=== PATIENT | male | born 1985 | race Caucasian/White ===

== ENCOUNTER 2021-05-17 16:11 | Inpatient (IN) ==
[2021-05-17] MEDS ORDERED: SODIUM CHLORIDE 0.9% 1000ML 1,000 ML IV ONE ×2 (16:40→21:00)
[2021-05-17] MEDS ORDERED: METOCLOPRAMIDE HCL INJ 5 MG/ML 2 ML VIAL IV STA (16:41)
[2021-05-17] MEDS ORDERED: diphenhydrAMINE 50 MG/ML VIAL IV STA (16:41)
--- NOTE | 2021-05-17 16:43 | Emergency Department Note ---
Impression & Plan Hyperbilirubinemia Admission ED Provider Note HPI: The patient is a 36-year-old male who presents the emergency department today with multiple issues. Patient states he was seen here in the emergency department on May 11 for headache, body aches, fever, he was diagnosed with COVID-19 at that time. He states that he was subsequently seen in the emergency department a second time on May 13 for some swelling on the left side of his neck that developed in the interim, CT imaging of the neck revealed a nonspecific inflammation thought to be consistent with myositis, possibly infectious, unclear if this was related to COVID-19 therefore patient was placed on Augmentin and discharged. He states that his symptoms had been improving in regards to the left-sided sternocleidomastoid myositis, states that last evening he developed a posterior type headache that radiated from the suboccipital muscle area anteriorly. He also has had myalgias. He tells me it is somewhat superficial in nature and feels almost as if it is in his scalp. He ststes it was similar in nature to his previous headaches. Patient states that in addition he had some outpatient lab work done on Tuesday that was concerning and his PCP recommended he come into the emergency department for further evaluation. His significant other at the bedside tells me that his white blood cell count was elevated and also his inflammatory markers including an ESR and CRP. On arrival here to the ED the patient is afebrile, he is slightly tachycardic, he is otherwise saturating well on room air and is in no acute distress. He is noted to have some scleral icterus, his tells me that she noticed this as well earlier today. He denies any abdominal pain, denies any nausea or vomiting recently. He is alert and oriented x3 and generally nontoxic-appearing on my initial assessment. ROS: -General: Fever in the setting of recent COVID-19 infection -Neuro: Headache -MSK: Myalgias/chills *10 point review systems was conducted and is otherwise negative unless stated above *Outpatient medications and allergy history reviewed PE: General: Alert, NAD HEENT: Normocephalic, atraumatic, trachea midline, full range of motion of the cervical spine is appreciated without pain, TMs clear bilaterally Eyes: Extraocular eye movement is intact, no scleral erythema, scleral icterus is noted Pulmonary: Clear to auscultation bilaterally, no wheezing Cardio: Tachycardic rate with regular rhythm GI: Abdomen is soft, nontender : No suprapubic tenderness MSK: No evidence of trauma or malformation of the extremities, no edema Skin: No evidence of rash Neuro: Alert, no focal deficits Psychiatric: Cooperative panel monitor: - An order was placed for continuous cardiac monitoring - Patient was noted to be in sinus rhythm with rate of 102 EKG: Rate: 105 Rhythm: Sinus tachycardia Intervals: Within normal limits ST changes: No ST elevation Time: 1656 Medical Decision Making: Patient presented to the emergency department with chief complaint of some myalgias, stated he also had a headache that radiated somewhat from the suboccipital area. He was recently diagnosed with COVID-19, he had similar symptoms earlier in the week that resolved and then returned. He is noted to have some scleral icterus on arrival, he is otherwise alert, he is hemodynamically stable despite some mild tachycardia, he is afebrile on presentation. Lab work was initiated including CBC, CMP, blood cultures x2, lactic acid, CPK levels, imaging was also ordered including CT imaging of the abdomen pelvis, chest x-ray, CT imaging of the head as well as CT imaging of the soft tissue of the neck. Lab work shows evidence of a leukocytosis greater than 18,000, procalcitonin is elevated 3.7, lactic acid is within normal limits, patient has a transaminitis and elevated alk phos, patient is also noted to have hyperbilirubinemia with a total bilirubin of 4.9. Urinalysis does not show evidence of infection, does show positive for urobilinogen and bilirubin. Patient was given 2 L of IV normal saline, he was given morphine for pain, he was also given Reglan and Benadryl. On my reassessment he states he feels improved. CT imaging of the head does not show any acute abnormality, CT imaging of the neck shows resolution of previous inflammation, CT imaging of the abdomen and pelvis does not show any evidence of an acute surgical abnormality. Ultrasound imaging of the right upper quadrant shows evidence of a thickened gallbladder wall with negative Gutierrez sign noted, patient is also noted to have hepatomegaly. On reassessment the patient is nontoxic-appearing, did discuss possible LP, at this time he does not have any meningeal signs on my exam, he has full range of motion of his neck without issue, he was recently diagnosed with COVID-19 and myositis of the neck, I believe this is likely why he has headache and neck pain as he had previously in the week, will defer LP at this time which the patient states he prefers. Of note, the patient is an avid travis, he was tested for Lyme disease earlier in the week and this was negative. Influenza testing was also obtained today and this is negative. I do have concern for hepatitis as a source of the patient's scleral icterus, transaminitis, elevated bilirubin, and transient fevers. We will send for acute hepatitis panel. In addition patient's COVID-19 testing was surprisingly negative, suspect this might be a false negative therefore we will repeat testing given that the patient just recently tested +6 days ago. Chest x-ray does not show any evidence of any obvious pneumonia. Urinalysis does show bilirubin but no evidence of infection. Given the patient's high procalcitonin level he was treated with broad-spectrum IV antibiotics vancomycin and cefepime, I discussed all the above findings with the on-call hospitalist, Dr. Garcia, who accepted the patient to an inpatient bed for further management and further work-up of transaminitis, fever, and hyperbilirubinemia in the setting of recent COVID-19 infection. * Diagnosis: Fever, hyperbilirubinemia, transaminitis , recent COVID-19 infection, myalgias, headache * Disposition: Admission Kevin Alexis DO Emergency Medicine Past Med/Surg History Medical History No significant past medical history Surgical History No significant past surgical history Social History Smoking Status: Never smoker Preferred Language: [place] marital status: Current Living Situation: Spouse and Family Feels Safe at Home: Yes Allergies Allergies Allergy/AdvReac Type Severity Reaction Status Date / Time No Known Allergies Allergy Verified 05/17/21 17:29 Home Meds Home Medications Medication Instructions Recorded Confirmed acetaminophen 500 mg tablet 1,000 mg PO Q6H PRN 05/11/21 05/17/21 (Tylenol Extra Strength) ibuprofen 200 mg tablet 400 - 600 mg PO DIRECTED PRN 05/17/21 05/17/21 Previous Rx's Medication Instructions Recorded amoxicillin 875 mg-potassium 1 tab PO BID 10 Days #20 tab 05/14/21 clavulanate 125 mg tablet (Augmentin) hydrocodone 5 mg-acetaminophen 325 1 tab PO Q6H PRN #10 tab 05/14/21 mg tablet Results & Data (ED) Vital Signs Vital Signs - 24 hr 05/17/21 16:18 05/17/21 17:36 05/17/21 17:38 Temperature 36.7 C Temperature Source Temporal Artery Scan Pulse Rate 104 H 97 H Pulse Rate [Finger] 96 H Pulse Rhythm Regular Respiratory Rate 18 30 H 30 H Respiratory Effort / Characteristics Respiratory Depth Blood Pressure 99/59 L Blood Pressure [Right Arm] 110/76 Blood Pressure Mean 72 Blood Pressure Mean [Right Arm] 87 Pulse Oximetry 98 97 96 Oxygen Delivery Method Sepsis Recent Fever Within 48 Hours No Sepsis New/Unexplained Change in Mental Status No Sepsis Action Taken by Nursing No Action Required 05/17/21 18:51 05/17/21 19:00 05/17/21 20:47 Temperature 38.6 C H Temperature Source Oral Pulse Rate Pulse Rate [Finger] 104 H 102 H Pulse Rhythm Respiratory Rate 18 24 Respiratory Effort / Characteristics Respiratory Depth Blood Pressure Blood Pressure [Right Arm] 132/72 137/70 Blood Pressure Mean Blood Pressure Mean [Right Arm] 92 92 Pulse Oximetry 97 96 Oxygen Delivery Method Sepsis Recent Fever Within 48 Hours Sepsis New/Unexplained Change in Mental Status Sepsis Action Taken by Nursing 05/17/21 22:30 05/17/21 23:14 05/17/21 23:20 Temperature Temperature Source Pulse Rate 105 H 105 H Pulse Rate [Finger] 106 H Pulse Rhythm Respiratory Rate 24 17 26 H Respiratory Effort / Characteristics Non-Labored Respiratory Depth Normal Blood Pressure Blood Pressure [Right Arm] 138/68 Blood Pressure Mean Blood Pressure Mean [Right Arm] 91 Pulse Oximetry 96 96 94 Oxygen Delivery Method Room Air Sepsis Recent Fever Within 48 Hours Sepsis New/Unexplained Change in Mental Status Sepsis Action Taken by Nursing 05/17/21 23:30 05/17/21 23:40 05/17/21 23:50 Temperature Temperature Source Pulse Rate 104 H 104 H 108 H Pulse Rate [Finger] Pulse Rhythm Respiratory Rate 18 20 17 Respiratory Effort / Characteristics Respiratory Depth Blood Pressure Blood Pressure [Right Arm] Blood Pressure Mean Blood Pressure Mean [Right Arm] Pulse Oximetry 97 95 97 Oxygen Delivery Method Sepsis Recent Fever Within 48 Hours Sepsis New/Unexplained Change in Mental Status Sepsis Action Taken by Nursing 05/17/21 23:59 05/18/21 00:00 Temperature Temperature Source Pulse Rate 108 H Pulse Rate [Finger] 108 H Pulse Rhythm Respiratory Rate 20 22 Respiratory Effort / Characteristics Respiratory Depth Blood Pressure 104/56 L Blood Pressure [Right Arm] 122/63 Blood Pressure Mean 72 Blood Pressure Mean [Right Arm] 82 Pulse Oximetry 96 95 Oxygen Delivery Method Room Air Sepsis Recent Fever Within 48 Hours Sepsis New/Unexplained Change in Mental Status Sepsis Action Taken by Nursing Laboratory Data Result diagrams: 05/17/21 17:17 05/17/21 17:17 Lab Results 05/17/21 05/17/21 05/17/21 Range/Units 17:17 17:17 17:17 WBC 18.77 H (4.8-10.8) K/uL RBC 4.77 (4.7-6.1) M/uL Hgb 14.6 (14.0-18.0) g/dL Hct 43.2 (42-52) % MCV 90.6 (80-100) fL MCH 30.6 (25-34) pg MCHC 33.8 (32-36) g/dL RDW Std Deviation 45.7 (36.4-46.3) fL RDW Coeff of Aida 13.8 (11.5-14.5) % Plt Count 279 (130-400) K/uL MPV 10.2 (7.4-10.4) fL Immature Gran % (Auto) 0.7 % Neut % (Auto) 91.0 % Lymph % (Auto) 3.2 % [place] % (Auto) 4.0 % Eos % (Auto) 0.9 % Baso % (Auto) 0.2 % Neut # (Auto) 17.08 H (1.4-6.5) K/uL Lymph # (Auto) 0.61 L (1.2-3.4) K/uL [place] # (Auto) 0.76 H (0.11-0.59) K/uL Eos # (Auto) 0.16 (0-0.5) K/uL Baso # (Auto) 0.03 (0-0.2) K/uL Immature Gran # (Auto) 0.13 H (0.00-0.02) K/uL PT (9.0-12.0) Seconds INR (0.9-1.1) APTT (21.0-31.0) Seconds PTT Ratio Sodium 134 L (136-145) mmol/L Potassium 3.7 (3.5-5.1) mmol/L Chloride 97 L (98-107) mmol/L Carbon Dioxide 27 (21-32) mmol/L Anion Gap 10.0 (3-11) BUN 27 H (7-18) mg/dl Creatinine 1.45 H (0.6-1.4) mg/dl Est Cr Clr Drug Dosing 90.8 ml/min Est GFR ( Amer) 70.8 ml/min Est GFR (Non-Af Amer) 61.1 ml/min BUN/Creatinine Ratio 18.4 (10-20) Glucose 151 H (70-99) mg/dl Lactate (0.4-2.0) mmol/L Calcium 9.1 (8.5-10.1) mg/dl Magnesium 2.4 (1.8-2.4) mg/dl Total Bilirubin 4.9 H (0.2-1) mg/dl Direct Bilirubin 3.7 H (0-0.2) mg/dl AST 45 H (15-37) U/L ALT 109 H (12-78) U/L Alkaline Phosphatase 358 H (45-117) U/L Total Creatine Kinase 16 L (39-308) U/L Troponin I 0.039 (0-0.045) ng/ml Total Protein 7.7 (6.4-8.2) gm/dl Albumin 2.4 L (3.4-5.0) gm/dl Globulin 5.3 H (2.5-4.0) gm/dl Albumin/Globulin Ratio 0.5 L (0.9-2) Procalcitonin 3.70 H (0-0.5) ng/ml Urine Color Urine Appearance (Clear) Urine pH (4.5-7.5) Ur Specific [place] (1.000-1.030) Urine Protein (Negative) Urine Glucose (UA) (Negative) Urine Ketones (Negative) Urine Blood (Negative) Urine Nitrite (Negative) Urine Bilirubin (Negative) Urine Urobilinogen (Negative) Ur Leukocyte Esterase (Negative) Urine WBC (Auto) (0-5) /hpf Urine RBC (Auto) (0-4) /hpf U Hyaline Cast (Auto) (0-5) /lpf U Epithel Cells (Auto) (0-5) /lpf Urine Bacteria (Auto) (Negative) COVID-19 Eval Order SARS-CoV-2 (PCR) (Negative) Influenza Type A Ag (Neg) Influ A Molecular Assay Influenza Type B Ag (Neg) Influ B Molecular Assay 05/17/21 05/17/21 05/17/21 Range/Units 17:17 17:17 18:38 WBC (4.8-10.8) K/uL RBC (4.7-6.1) M/uL Hgb (14.0-18.0) g/dL Hct (42-52) % MCV (80-100) fL MCH (25-34) pg MCHC (32-36) g/dL RDW Std Deviation (36.4-46.3) fL RDW Coeff of Aida (11.5-14.5) % Plt Count (130-400) K/uL MPV (7.4-10.4) fL Immature Gran % (Auto) % Neut % (Auto) % Lymph % (Auto) % [place] % (Auto) % Eos % (Auto) % Baso % (Auto) % Neut # (Auto) (1.4-6.5) K/uL Lymph # (Auto) (1.2-3.4) K/uL [place] # (Auto) (0.11-0.59) K/uL Eos # (Auto) (0-0.5) K/uL Baso # (Auto) (0-0.2) K/uL Immature Gran # (Auto) (0.00-0.02) K/uL PT 10.6 (9.0-12.0) Seconds INR 1.0 (0.9-1.1) APTT 23.1 (21.0-31.0) Seconds PTT Ratio 0.9 Sodium (136-145) mmol/L Potassium (3.5-5.1) mmol/L Chloride (98-107) mmol/L Carbon Dioxide (21-32) mmol/L Anion Gap (3-11) BUN (7-18) mg/dl Creatinine (0.6-1.4) mg/dl Est Cr Clr Drug Dosing ml/min Est GFR ( Amer) ml/min Est GFR (Non-Af Amer) ml/min BUN/Creatinine Ratio (10-20) Glucose (70-99) mg/dl Lactate 1.8 (0.4-2.0) mmol/L Calcium (8.5-10.1) mg/dl Magnesium (1.8-2.4) mg/dl Total Bilirubin (0.2-1) mg/dl Direct Bilirubin (0-0.2) mg/dl AST (15-37) U/L ALT (12-78) U/L Alkaline Phosphatase (45-117) U/L Total Creatine Kinase (39-308) U/L Troponin I (0-0.045) ng/ml Total Protein (6.4-8.2) gm/dl Albumin (3.4-5.0) gm/dl Globulin (2.5-4.0) gm/dl Albumin/Globulin Ratio (0.9-2) Procalcitonin (0-0.5) ng/ml Urine Color Urine Appearance (Clear) Urine pH (4.5-7.5) Ur Specific [place] (1.000-1.030) Urine Protein (Negative) Urine Glucose (UA) (Negative) Urine Ketones (Negative) Urine Blood (Negative) Urine Nitrite (Negative) Urine Bilirubin (Negative) Urine Urobilinogen (Negative) Ur Leukocyte Esterase (Negative) Urine WBC (Auto) (0-5) /hpf Urine RBC (Auto) (0-4) /hpf U Hyaline Cast (Auto) (0-5) /lpf U Epithel Cells (Auto) (0-5) /lpf Urine Bacteria (Auto) (Negative) COVID-19 Eval Order SARS-CoV-2 (PCR) (Negative) Influenza Type A Ag Neg for Influ A (Neg) Influ A Molecular Assay Influenza Type B Ag Neg for Influ B (Neg) Influ B Molecular Assay 05/17/21 05/17/21 05/17/21 Range/Units 18:39 19:46 21:12 WBC (4.8-10.8) K/uL RBC (4.7-6.1) M/uL Hgb (14.0-18.0) g/dL Hct (42-52) % MCV (80-100) fL MCH (25-34) pg MCHC (32-36) g/dL RDW Std Deviation (36.4-46.3) fL RDW Coeff of Aida (11.5-14.5) % Plt Count (130-400) K/uL MPV (7.4-10.4) fL Immature Gran % (Auto) % Neut % (Auto) % Lymph % (Auto) % [place] % (Auto) % Eos % (Auto) % Baso % (Auto) % Neut # (Auto) (1.4-6.5) K/uL Lymph # (Auto) (1.2-3.4) K/uL [place] # (Auto) (0.11-0.59) K/uL Eos # (Auto) (0-0.5) K/uL Baso # (Auto) (0-0.2) K/uL Immature Gran # (Auto) (0.00-0.02) K/uL PT (9.0-12.0) Seconds INR (0.9-1.1) APTT (21.0-31.0) Seconds PTT Ratio Sodium (136-145) mmol/L Potassium (3.5-5.1) mmol/L Chloride (98-107) mmol/L Carbon Dioxide (21-32) mmol/L Anion Gap (3-11) BUN (7-18) mg/dl Creatinine (0.6-1.4) mg/dl Est Cr Clr Drug Dosing ml/min Est GFR ( Amer) ml/min Est GFR (Non-Af Amer) ml/min BUN/Creatinine Ratio (10-20) Glucose (70-99) mg/dl Lactate (0.4-2.0) mmol/L Calcium (8.5-10.1) mg/dl Magnesium (1.8-2.4) mg/dl Total Bilirubin (0.2-1) mg/dl Direct Bilirubin (0-0.2) mg/dl AST (15-37) U/L ALT (12-78) U/L Alkaline Phosphatase (45-117) U/L Total Creatine Kinase (39-308) U/L Troponin I (0-0.045) ng/ml Total Protein (6.4-8.2) gm/dl Albumin (3.4-5.0) gm/dl Globulin (2.5-4.0) gm/dl Albumin/Globulin Ratio (0.9-2) Procalcitonin (0-0.5) ng/ml Urine Color Dark Yellow Urine Appearance Cloudy A (Clear) Urine pH 5.0 (4.5-7.5) Ur Specific [place] 1.019 (1.000-1.030) Urine Protein 1+ H (Negative) Urine Glucose (UA) Negative (Negative) Urine Ketones Negative (Negative) Urine Blood Negative (Negative) Urine Nitrite Negative (Negative) Urine Bilirubin 2+ H (Negative) Urine Urobilinogen Positive H (Negative) Ur Leukocyte Esterase Negative (Negative) Urine WBC (Auto) 1-5 (0-5) /hpf Urine RBC (Auto) 10-30 H (0-4) /hpf U Hyaline Cast (Auto) 1-5 (0-5) /lpf U Epithel Cells (Auto) 0-5 (0-5) /lpf Urine Bacteria (Auto) Negative (Negative) COVID-19 Eval Order Covid19 at [facility] SARS-CoV-2 (PCR) (Negative) Influenza Type A Ag (Neg) Influ A Molecular Assay Cancelled Influenza Type B Ag (Neg) Influ B Molecular Assay Cancelled 05/17/21 Range/Units 21:12 WBC (4.8-10.8) K/uL RBC (4.7-6.1) M/uL Hgb (14.0-18.0) g/dL Hct (42-52) % MCV (80-100) fL MCH (25-34) pg MCHC (32-36) g/dL RDW Std Deviation (36.4-46.3) fL RDW Coeff of Aida (11.5-14.5) % Plt Count (130-400) K/uL MPV (7.4-10.4) fL Immature Gran % (Auto) % Neut % (Auto) % Lymph % (Auto) % [place] % (Auto) % Eos % (Auto) % Baso % (Auto) % Neut # (Auto) (1.4-6.5) K/uL Lymph # (Auto) (1.2-3.4) K/uL [place] # (Auto) (0.11-0.59) K/uL Eos # (Auto) (0-0.5) K/uL Baso # (Auto) (0-0.2) K/uL Immature Gran # (Auto) (0.00-0.02) K/uL PT (9.0-12.0) Seconds INR (0.9-1.1) APTT (21.0-31.0) Seconds PTT Ratio Sodium (136-145) mmol/L Potassium (3.5-5.1) mmol/L Chloride (98-107) mmol/L Carbon Dioxide (21-32) mmol/L Anion Gap (3-11) BUN (7-18) mg/dl Creatinine (0.6-1.4) mg/dl Est Cr Clr Drug Dosing ml/min Est GFR ( Amer) ml/min Est GFR (Non-Af Amer) ml/min BUN/Creatinine Ratio (10-20) Glucose (70-99) mg/dl Lactate (0.4-2.0) mmol/L Calcium (8.5-10.1) mg/dl Magnesium (1.8-2.4) mg/dl Total Bilirubin (0.2-1) mg/dl Direct Bilirubin (0-0.2) mg/dl AST (15-37) U/L ALT (12-78) U/L Alkaline Phosphatase (45-117) U/L Total Creatine Kinase (39-308) U/L Troponin I (0-0.045) ng/ml Total Protein (6.4-8.2) gm/dl Albumin (3.4-5.0) gm/dl Globulin (2.5-4.0) gm/dl Albumin/Globulin Ratio (0.9-2) Procalcitonin (0-0.5) ng/ml Urine Color Urine Appearance (Clear) Urine pH (4.5-7.5) Ur Specific [place] (1.000-1.030) Urine Protein (Negative) Urine Glucose (UA) (Negative) Urine Ketones (Negative) Urine Blood (Negative) Urine Nitrite (Negative) Urine Bilirubin (Negative) Urine Urobilinogen (Negative) Ur Leukocyte Esterase (Negative) Urine WBC (Auto) (0-5) /hpf Urine RBC (Auto) (0-4) /hpf U Hyaline Cast (Auto) (0-5) /lpf U Epithel Cells (Auto) (0-5) /lpf Urine Bacteria (Auto) (Negative) COVID-19 Eval Order SARS-CoV-2 (PCR) NEGATIVE (Negative) Influenza Type A Ag (Neg) Influ A Molecular Assay Influenza Type B Ag (Neg) Influ B Molecular Assay Administered Medications Discontinued Medications Diphenhydramine HCl (Diphenhydramine 50 Mg/Ml Vial) 50 mg IV NOW STA Stop: 05/17/21 16:42 Last Admin: 05/17/21 17:30 Dose: 50 mg Documented by: [id number] Sodium Chloride (Nss 1000ml) 1,000 mls @ 999 mls/hr IV .Q1H1M ONE Stop: 05/17/21 17:40 Last Infusion: 05/17/21 18:30 Dose: 0 mls/hr Documented by: [id number] Admin: 05/17/21 17:30 Dose: 999 mls/hr Documented by: [id number] Sodium Chloride (Nss 1000ml) 1,000 mls @ 999 mls/hr IV .Q1H1M ONE Stop: 05/17/21 22:00 Last Infusion: 05/17/21 22:39 Dose: 0 mls/hr Documented by: [id number] Admin: 05/17/21 21:07 Dose: 999 mls/hr Documented by: [id number] Ioversol (Optiray 320 100ml) 95 ml IV ONCE ONE Stop: 05/17/21 19:30 Last Admin: 05/17/21 19:30 Dose: 95 ml Documented by: [id number] Metoclopramide HCl (Metoclopramide Hcl Inj 5 Mg/Ml 2 Ml Vial) 10 mg IV NOW STA Stop: 05/17/21 16:42 Last Admin: 05/17/21 17:30 Dose: 10 mg Documented by: [id number] Morphine Sulfate (Morphine Sulfate 4 Mg/Ml 1 Ml Carp\Vial) 4 mg IV NOW STA Stop: 05/17/21 21:01 Last Admin: 05/17/21 21:07 Dose: 4 mg Documented by: [id number] Imaging Data Radiologist's Impression: Chest X-Ray 05/17/21 16:39 XR chest 1V portable CLINICAL HISTORY: SEPSIS COMPARISON STUDY: Chest radiograph May 11, 2021. FINDINGS: Lung volumes are normal. There are mild bilateral lower lung opacities and interstitial thickening. Linear bibasilar opacities favor atelectasis. There is no pneumothorax or pleural effusion. Cardiac size is normal. Mediastinal c ontours are normal. There is no evidence for pulmonary edema. IMPRESSION: 1. Mild bilateral lower lung interstitial thickening. This could reflect an infectious process or atelectasis. 2. Linear bibasilar opacities suggestive of atelectasis. ACT 112: Negative or not required by law. Electronically signed by: Blair Wolf M.D. 05/17/2021 5:[address] 05/17/21 16:40 CT OF THE HEAD WITHOUT CONTRAST CLINICAL HISTORY: Headache. COMPARISON STUDY: No previous studies for comparison. TECHNIQUE: Helical axial images of the head were obtained without IV contrast. Automated exposure control was utilized for the study. A dose lowering technique was utilized adhering to the principles of ALARA. FINDINGS: No acute intracranial hemorrhage, midline shift or mass effect is present. The ventricular system is unremarkable. The basal cisterns are patent. No extra-axial collections are present. There are no findings to suggest acute dural sinus thrombosis or acute territorial infarct. No significant calvarial abnormalities are present. Visualized portions of the sinuses and mastoid air cells are clear. IMPRESSION: No acute intracranial findings. ACT 112: Negative or not required by law. Electronically signed by: Blair Wolf M.D. 05/17/2021 7:36 PM Soft Tissue Neck CT 05/17/21 16:40 CT OF THE NECK WITH IV CONTRAST CLINICAL HISTORY: Neck pain, recent myositis, evaluate for infection. COMPARISON STUDY: Neck CT May 14, 2021. TECHNIQUE: Following IV administration of 95 mL of Optiray, helical axial images of the neck were obtained. Sagittal and coronal reconstructions were viewed. Automated exposure control was utilized for the study. A dose lowering technique was utilized adhering to the principles of ALARA. CT DOSE: 3015.19 mGy.cm FINDINGS: Visualized portions of the intracranial contents are unremarkable. Mastoid air cells are clear. There is mild mucosal thickening of the sinuses. No fluid collection within the neck is noted. Major vasculature of the neck is patent. Epiglottis is normal. Parotid and submandibular glands are unremarkable. Is no soft tissue gas within the neck. Left neck inflammation shown on prior CT of May 14, 2021 has nearly completely resolved. Asymmetric enlargement of the left sternocleidomastoid muscle has resolved. Lymphadenopathy has improved. Lung apices are unremarkable. IMPRESSION: Near complete resolution of left neck inflammation shown on CT of May 14, 2021. ACT 112: Negative or not required by law. Electronically signed by: Blair Wolf M.D. 05/17/2021 7:42 PM Abdomen/Pelvis CT 05/17/21 19:17 CT OF THE ABDOMEN AND PELVIS WITH CONTRAST CLINICAL HISTORY: Transaminitis. COMPARISON STUDY: None. TECHNIQUE: Following IV administration of 95 mL of Optiray, axial images of the abdomen and pelvis were obtained from the lung bases to the proximal femurs. Images were reviewed in the axial, sagittal, and coronal planes. IV contrast was administered without complication. Automated exposure control was utilized for the study. A dose lowering technique was utilized adhering to the principles of ALARA. FINDINGS: Linear opacities within the lower lungs reflect atelectasis. There are mild groundglass opacities within the lower lungs. There are trace bilateral pleural effusions. No hepatic lesions are present. Liver morphology is normal. There is no biliary or pancreatic ductal dilatation. Mild gallbladder wall thickening is noted. The gallbladder is not distended. There is mild splenomegaly. The adrenal glands are unremarkable. Is no hydronephrosis. There is prominent enhancement of both ureters. Slight heterogeneity of the right kidney is likely within normal limits. There is no renal abscess. There is no evidence for a bowel obstruction. The appendix is normal. Caliber and wall thickness of small and large bowel are normal. There is trace fluid within the paracolic gutters. IMPRESSION: 1. No biliary ductal dilatation. Normal liver morphology. 2. Mild gallbladder wall thickening, a nonspecific finding. No gallbladder distention. The findings do not suggest acute cholecystitis. 3. Mild splenomegaly. 4. Apparent prominent enhancement of both ureters and slight heterogeneity of the right kidney, likely within normal limits. However, correlation with urinalysis is recommended. 5. Trace bilateral pleural effusions. 6. Normal appendix. No bowel obstruction. No bowel wall thickening. 7. Trace fluid within the bilateral paracolic gutters. ACT 112: Negative or not required by law. Electronically signed by: Blair Wolf M.D. 05/17/2021 7:54 PM Discharge Plan Visit Data Chief Complaint: Abnormal Labs/Diagnostic Testing Stated Complaint: CRITICAL LAB RESULTS - DR ROBBINS ED Provider: Kevin Alexis Discharge Problem: Hyperbilirubinemia Forms Stand Alone Forms: Funinhand Prescriptions Prescriptions: No Action ibuprofen 200 mg Tablet 400 - 600 mg PO DIRECTED PRN (Reason: FEVER/PAIN) RF: 0 acetaminophen [Tylenol Extra Strength] 500 mg Tablet 1,000 mg PO Q6H PRN (Reason: fever/pain) RF: 0 amoxicillin-pot clavulanate [Augmentin] 875-125 mg tablet 1 tab PO BID 10 Days Qty: 20 RF: 0 hydrocodone-acetaminophen 5-325 mg tablet 1 tab PO Q6H PRN (Reason: pain) Qty: 10 RF: 0 Referrals Referrals: Lauren Guajardo DO [Primary Care Provider] -
--- NOTE | 2021-05-17 17:04 | XRay Report ---
XR chest 1V portable CLINICAL HISTORY: SEPSIS COMPARISON STUDY: Chest radiograph May 11, 2021. FINDINGS: Lung volumes are normal. There are mild bilateral lower lung opacities and interstitial thi ckening. Linear bibasilar opacities favor atelectasis. There is no pneumothorax or pleural effusion. Cardiac size is normal. Mediastinal contours are normal. There is no evidence for pulmonary edema. IMPRESSION: 1. Mild bilateral lower lung interstitial thickening. This could reflect an infectious process or ate lectasis. 2. Linear bibasilar opacities suggestive of atelectasis. ACT 112: Negative or not required by law. Electronically signed by: Blair Wolf M.D. 05/17/2021 5:03 PM
[2021-05-17 17:26] LABS: Basophils # (auto) 0.03 K/uL (0-0.2); Basophils % (auto) 0.2 %; Eosinophils # (auto) 0.16 K/uL (0-0.5); Eosinophils % (auto) 0.9 %; Hematocrit (blood only) 43.2 % (42-52); Hemoglobin 14.6 g/dL (14.0-18.0); Immature Granulocytes # (auto) 0.13 K/uL (0.00-0.02); Immature Granulocytes % (auto) 0.7 %; Lymphocytes # (auto) 0.61 K/uL (1.2-3.4); Lymphocytes % (auto) 3.2 %; Mean Corpuscular Hemoglobin 30.6 pg (25-34); Mean Corpuscular Hgb Conc 33.8 g/dL (32-36); Mean Corpuscular Volume 90.6 fL (80-100); Mean Platelet Volume 10.2 fL (7.4-10.4); Monocytes # (auto) 0.76 K/uL (0.11-0.59); Neutrophils # (auto) 17.08 K/uL (1.4-6.5); Platelet Count 279 K/uL (130-400); RDW Coefficient of Variation 13.8 % (11.5-14.5); RDW Standard Deviation 45.7 fL (36.4-46.3); Red Blood Count 4.77 M/uL (4.7-6.1); White Blood Count 18.77 K/uL (4.8-10.8)
[2021-05-17 17:38] LABS: Partial Thromboplastin Ratio 0.9; Partial Thromboplastin Time 23.1 Seconds (21.0-31.0); Prothrombin Time 10.6 Seconds (9.0-12.0)
[2021-05-17 17:44] LABS: Albumin Level 2.4 gm/dl (3.4-5.0); BUN Creatinine Ratio 18.4 (10-20); Calcium 9.1 mg/dl (8.5-10.1); Creatinine Clr Calc Pharmacy 90.8 ml/min; Est GFR (African American) 70.8 ml/min; Est GFR (Non-African American) 61.1 ml/min; Magnesium 2.4 mg/dl (1.8-2.4); Potassium 3.7 mmol/L (3.5-5.1)
[2021-05-17 17:53] LABS: Albumin Globulin Ratio 0.5 (0.9-2); Bilirubin,Total 4.9 mg/dl (0.2-1); Globulin 5.3 gm/dl (2.5-4.0); Total Protein 7.7 gm/dl (6.4-8.2); Troponin I 0.039 ng/ml (0-0.045)
[2021-05-17] MEDS ORDERED: OPTIRAY 320 100ml IV ONE (19:29)
--- NOTE | 2021-05-17 19:37 | CT Scan Report ---
CT OF THE HEAD WITHOUT CONTRAST CLINICAL HISTORY: Headache. COMPARISON STUDY: No previous studies for comparison. TECHNIQUE: Helical axial images of the head were obtained without IV contrast. Automated exposure con trol was utilized for the study. A dose lowering technique was utilized adhering to the principles o f ALARA. FINDINGS: No acute intracranial hemorrhage, midline shift or mass effect is present. The ventricular system is unremarkable. The basal cisterns are patent. No extra-axial collections are present. There are no findings to suggest acute dural sinus thrombosis or acute territorial infarct. No significant calvarial abnormalities are present. Visualized portions of the sinuses and mastoid air cells are aakash ar. IMPRESSION: No acute intracranial findings. ACT 112: Negative or not required by law. Electronically signed by: Blair Wolf M.D. 05/17/2021 7:36 PM
--- NOTE | 2021-05-17 19:44 | CT Scan Report ---
CT OF THE NECK WITH IV CONTRAST CLINICAL HISTORY: Neck pain, recent myositis, evaluate for infection. COMPARISON STUDY: Neck CT May 14, 2021. TECHNIQUE: Following IV administration of 95 mL of Optiray, helical axial images of the neck were ob tained. Sagittal and coronal reconstructions were viewed. Automated exposure control was utilized f or the study. A dose lowering technique was utilized adhering to the principles of ALARA. CT DOSE: 3015.19 mGy.cm FINDINGS: Visualized portions of the intracranial contents are unremarkable. Mastoid air cells are c lear. There is mild mucosal thickening of the sinuses. No fluid collection within the neck is noted. Major vasculature of the neck is patent. Epiglottis is normal. Parotid and submandibular glands are u nremarkable. Is no soft tissue gas within the neck. Left neck inflammation shown on prior CT of Novem 2020 has nearly completely resolved. Asymmetric enlargement of the left sternocleidomastoid mu scle has resolved. Lymphadenopathy has improved. Lung apices are unremarkable. IMPRESSION: Near complete resolution of left neck inflammation shown on CT of May 14, 2021. ACT 112: Negative or not required by law. Electronically signed by: Blair Wolf M.D. 05/17/2021 7:42 PM
--- NOTE | 2021-05-17 19:56 | CT Scan Report ---
CT OF THE ABDOMEN AND PELVIS WITH CONTRAST CLINICAL HISTORY: Transaminitis. COMPARISON STUDY: None. TECHNIQUE: Following IV administration of 95 mL of Optiray, axial images of the abdomen and pelvis we re obtained from the lung bases to the proximal femurs. Images were reviewed in the axial, sagittal, and coronal planes. IV contrast was administered without complication. Automated exposure control wa s utilized for the study. A dose lowering technique was utilized adhering to the principles of ALARA . FINDINGS: Linear opacities within the lower lungs reflect atelectasis. There are mild groundglass opa cities within the lower lungs. There are trace bilateral pleural effusions. No hepatic lesions are pr esent. Liver morphology is normal. There is no biliary or pancreatic ductal dilatation. Mild gallblad geovanna wall thickening is noted. The gallbladder is not distended. There is mild splenomegaly. The adren al glands are unremarkable. Is no hydronephrosis. There is prominent enhancement of both ureters. Sli ght heterogeneity of the right kidney is likely within normal limits. There is no renal abscess. Ther e is no evidence for a bowel obstruction. The appendix is normal. Caliber and wall thickness of small and large bowel are normal. There is trace fluid within the paracolic gutters. IMPRESSION: 1. No biliary ductal dilatation. Normal liver morphology. 2. Mild gallbladder wall thickening, a nonspecific finding. No gallbladder distention. The findings d o not suggest acute cholecystitis. 3. Mild splenomegaly. 4. Apparent prominent enhancement of both ureters and slight heterogeneity of the right kidney, likel y within normal limits. However, correlation with urinalysis is recommended. 5. Trace bilateral pleural effusions. 6. Normal appendix. No bowel obstruction. No bowel wall thickening. 7. Trace fluid within the bilateral paracolic gutters. ACT 112: Negative or not required by law. Electronically signed by: Blair Wolf M.D. 05/17/2021 7:54 PM
[2021-05-17 20:37] LABS: Appearance Urine Cloudy (Clear); Bacteria Urine Automated Negative (Negative); Blood Urine Negative (Negative); Color Urine Dark Yellow; Epithelial Cell Urine Auto 0-5 /lpf (0-5); Glucose Urine UA Negative (Negative); Ketones Urine Negative (Negative); Leukocyte Esterase Urine Negative (Negative); Nitrite Urine Negative (Negative); Protein Urine 1+ (Negative); Specific Gravity Urine 1.019 (1.000-1.030); Urobilinogen Urine Positive (Negative)
[2021-05-17 20:40] LABS: Bilirubin Urine 2+ (Negative)
[2021-05-17] MEDS ORDERED: MoRPHine SULFATE 4 MG/ML 1 ML CARP\\VIAL IV STA (21:00)
[2021-05-17] MEDS ORDERED: VANCOMYCIN CONSULT ACTIVE PRN (23:31)
[2021-05-17] MEDS ORDERED: CEFEPIME 1,000 MG in SYRINGE 0 ML IV STA (23:31)
[2021-05-17] MEDS ORDERED: VANCOMYCIN HCL 1,750 MG in SODIUM CHLORIDE 0.9% 500 ML IV SCH (23:45)
[2021-05-17 23:50] LABS: Bilirubin Direct 3.7 mg/dl (0-0.2)
[2021-05-18] MEDS ORDERED: VANCOMYCIN HCL 2,250 MG in SODIUM CHLORIDE 0.9% 500 ML IV STA (00:16)
[2021-05-18] MEDS ORDERED: ACETAMINOPHEN 325 MG TAB ONE (00:20)
[2021-05-18] MEDS ORDERED: ACETAMINOPHEN 325 MG TAB PO STA (00:21)
--- NOTE | 2021-05-18 00:47 | History & Physical Report ---
Date of Service May 18, 2021 Assessment & Plan (1) COVID-19 virus infection: Plan: 36yo male with no significant past medical or surgical history presenting with febrile illness, RABAGO and myalgias. Patient's symptoms began on 05/07/21. He tested positive for Covid-19 on 05/11/21. He tests NEGATIVE today. Ongoing fever, body aches and posterior headache. Poor oral intake Exam with icterus and injected conjunctiva. Worsening leukocytosis with neutrophil predominance as well as abnormal LFTs in mixed obstructive/hepatocellular pattern. CT with hepatosplenomegaly. Ddx to include: Covid-19 infection vs other viral infection - specifically considering CMV, EBV in setting of hepatosplenomegaly. Adenovirus, coxsackie virus less likely. Patient is an avid outdoorsman and endorses multiple tick bites in the past- had a negative Lyme study performed on 05/11/12. ?Anaplasmosis or, less likely, Babesiosis. Less likely should consider malignancy - patient with acute left neck swelling, LAD and Hepatosplenomegaly noted on imaging. -No steroids at this time as patient is not hypoxic -Continue to monitor respiratory status (2) Sepsis: Plan: Patient febrile, tachycardic with leukocytosis. Recently diagnosed with Covid- 19. Uncertain if underlying presentation represents advancing Covid-19 infection vs other illness. Procalcitonin is elevated at 3.7 -Follow cultures -Gentle IVF -Empiric Vancomycin, Cefepime -Empiric Doxycycline for possible Anaplasmosis (3) Abnormal LFTs: Plan: Mixed hepatocellular and obstructive pattern, values worsening over the last several days. Patient denies prior history of liver dysfunction. He drinks 2-3 beers per day. Does not take much Tylenol. Ddx to include viral infection - Covid-19, CMV, EBV, ?bacterial infection - specifically Anaplasmosis or Babesiosis given history of tick bites. INR is normal. Albumin is low at 2.4. -Check Acetaminophen, Ferritin, Acute hepatitis panel -Check CMV/EBV -Repeat LFTs in AM -GI Consultation appreciated (4) Headache: Plan: Patient complains of severe posterior headache. No neurological deficits. -Consider LP -Check MRV -Pain control as needed Plan: F/E/N - LR at 125mL/hr x 2, monitor electolytes and replete as needed, clear liquid diet - advance to regular as tolerated Ppx - Lovenox 40 BID Code - Full Dispo - Admit to medical History of Present Illness Chief Complaint: body aches, headache Primary Care Provider: Lauren Guajardo DO Duncan Mooney is a 36yo male with no significant past medical or surgical history presenting with multiple issues. Patient first developed fever, chills, headache and body aches on 05/08/21. He was seen in the ER on 05/11/21. He was found to have leukocytosis, elevated ESR and CRP. Influenza and Lyme screen were negative. Patient was found to be POSITIVE for Covid-19. He was dischar ged home with instruction to quarantine x 10 days from symptom onset. Patient returned to the ER on 05/14/21 with complaint of left sided neck pain and swelling. Patient febrile at that time at 38.3. WBC was normal at 9.74. Alkaline phosphatase mildly elevated at 128 - LFTs otherwise unremarkable. Patient had a CT of the neck which revealed infiltration o the left parapharyngeal space and adjacent to the left SCM muscle with thickening of the left platysma. Findings suggestive of infectious process involving left SCM muscle. Multiple mildly enlarged left cervical lymph nodes appreciated. Patient was discharged home on Augmentin and Tylenol and Advil as needed. Patient returns this evening with worsening headache. He states he has pain up his entire back, posterior neck and head to the top of his head. Also complaining of myalgias, ongoing fever. He has had very little oral intake over the last 4 days. Patient denies sick contacts, recent travel. Drinks 2-3 beers/day but has not had any alcohol for at least 1 week. He denies taking much Tylenol. He denies knowledge of prior liver issues. Patient febrile to 38.6 in the ER, tachycardic at 106, BP is stable and he is not hypoxic - 96% on room air ER Course: Vancomycin Cefepime Allergies Allergy/AdvReac Type Severity Reaction Status Date / Time No Known Allergies Allergy Verified 05/17/21 17:29 Home Medications Medication Instructions Recorded Confirmed Type acetaminophen 500 mg tablet 1,000 mg PO Q6H PRN 05/11/21 05/17/21 History (Tylenol Extra Strength) amoxicillin 875 mg-potassium 1 tab PO BID 10 Days #20 tab 05/14/21 05/17/21 Rx clavulanate 125 mg tablet (Augmentin) hydrocodone 5 mg-acetaminophen 325 1 tab PO Q6H PRN #10 tab 05/14/21 05/17/21 Rx mg tablet ibuprofen 200 mg tablet 400 - 600 mg PO DIRECTED PRN 05/17/21 05/17/21 History Past Med/Surg History Medical History No significant past medical history Surgical History No significant past surgical history Social History Smoking Status: Never smoker Preferred Language: Lao marital status: Current Living Situation: Spouse and Family Feels Safe at Home: Yes Review of Systems Review of Systems: All systems reviewed & are unremarkable except as noted in HPI & below Physical Exam Physical Exam: General: patient ill in appearance, AA&O x 4 Skin: warm, dry, intact, no rashes or lesions HEENT: NC/AT, PERRL, EOMI, mild scleral icterus and injected conjunctiva bilaterally, external ear normal to inspection and nontender, nares patent, dry mucus membranes, dentition intact, no oropharyngeal lesions, neck supple, trachea midline, no LAD, no thyromegaly, no JVD, tenderness with palpation of left neck but no appreciable collection or abscess Heart: +S1/S2, regular, tachycardic no m/r/g Lungs: equal air entry bilaterally, no rales/rhonchi/wheezes Abd: +BS, soft, NT/ND, no masses/organomegaly/ascites Ext: warm, 2+ pulses in UE/LE bilaterally, no clubbing/cyanosis or edema Neuro: nonfocal, patient AA&O x 4, speech intact, no facial droop, moving all extremities on command with equal strength 5/5 Results & Data Results & Data ([facility]) Vital Signs (Past 12 Hours) Vital Signs Temp Pulse Pulse Resp BP BP Pulse Ox 05/18/21 00:15 37.7 C H 05/18/21 00:00 108 H 22 104/56 L 95 05/17/21 23:59 108 H 20 122/63 96 05/17/21 23:50 108 H 17 97 05/17/21 23:40 104 H 20 95 05/17/21 23:30 104 H 18 97 05/17/21 23:20 105 H 26 H 94 05/17/21 23:14 105 H 17 96 05/17/21 22:30 106 H 24 138/68 96 05/17/21 20:47 38.6 C H 05/17/21 19:00 102 H 24 137/70 96 05/17/21 18:51 104 H 18 132/72 97 05/17/21 17:38 96 H 30 H 110/76 96 05/17/21 17:36 97 H 30 H 97 05/17/21 16:18 36.7 C 104 H 18 99/59 L 98 Laboratory Results Laboratory Results WBC 18.77 K/uL (4.8-10.8) H 05/17/21 17:17 RBC 4.77 M/uL (4.7-6.1) 05/17/21 17:17 Hgb 14.6 g/dL (14.0-18.0) 05/17/21 17:17 Hct 43.2 % (42-52) 05/17/21 17:17 MCV 90.6 fL (80-100) 05/17/21 17:17 MCH 30.6 pg (25-34) 05/17/21 17:17 MCHC 33.8 g/dL (32-36) 05/17/21 17:17 RDW Std Deviation 45.7 fL (36.4-46.3) 05/17/21 17:17 RDW Coeff of Aida 13.8 % (11.5-14.5) 05/17/21 17:17 Plt Count 279 K/uL (130-400) 05/17/21 17:17 MPV 10.2 fL (7.4-10.4) 05/17/21 17:17 Immature Gran % (Auto) 0.7 % 05/17/21 17:17 Neut % (Auto) 91.0 % 05/17/21 17:17 Lymph % (Auto) 3.2 % 05/17/21 17:17 [place] % (Auto) 4.0 % 05/17/21 17:17 Eos % (Auto) 0.9 % 05/17/21 17:17 Baso % (Auto) 0.2 % 05/17/21 17:17 Neut # (Auto) 17.08 K/uL (1.4-6.5) H 05/17/21 17:17 Lymph # (Auto) 0.61 K/uL (1.2-3.4) L 05/17/21 17:17 [place] # (Auto) 0.76 K/uL (0.11-0.59) H 05/17/21 17:17 Eos # (Auto) 0.16 K/uL (0-0.5) 05/17/21 17:17 Baso # (Auto) 0.03 K/uL (0-0.2) 05/17/21 17:17 Immature Gran # (Auto) 0.13 K/uL (0.00-0.02) H 05/17/21 17:17 PT 10.6 Seconds (9.0-12.0) 05/17/21 17:17 INR 1.0 (0.9-1.1) 05/17/21 17:17 APTT 23.1 Seconds (21.0-31.0) 05/17/21 17:17 PTT Ratio 0.9 05/17/21 17:17 Sodium 134 mmol/L (136-145) L 05/17/21 17:17 Potassium 3.7 mmol/L (3.5-5.1) 05/17/21 17:17 Chloride 97 mmol/L (98-107) L 05/17/21 17:17 Carbon Dioxide 27 mmol/L (21-32) 05/17/21 17:17 Anion Gap 10.0 (3-11) 05/17/21 17:17 BUN 27 mg/dl (7-18) H 05/17/21 17:17 Creatinine 1.45 mg/dl (0.6-1.4) H 05/17/21 17:17 Est Cr Clr Drug Dosing 90.8 ml/min 05/17/21 17:17 Est GFR ( Amer) 70.8 ml/min 05/17/21 17:17 Est GFR (Non-Af Amer) 61.1 ml/min 05/17/21 17:17 BUN/Creatinine Ratio 18.4 (10-20) 05/17/21 17:17 Glucose 151 mg/dl (70-99) H 05/17/21 17:17 Lactate 1.8 mmol/L (0.4-2.0) 05/17/21 17:17 Calcium 9.1 mg/dl (8.5-10.1) 05/17/21 17:17 Magnesium 2.4 mg/dl (1.8-2.4) 05/17/21 17:17 Total Bilirubin 4.9 mg/dl (0.2-1) H 05/17/21 17:17 Direct Bilirubin 3.7 mg/dl (0-0.2) H 05/17/21 17:17 AST 45 U/L (15-37) H 05/17/21 17:17 ALT 109 U/L (12-78) H 05/17/21 17:17 Alkaline Phosphatase 358 U/L (45-117) H 05/17/21 17:17 Total Creatine Kinase 16 U/L (39-308) L 05/17/21 17:17 Troponin I 0.039 ng/ml (0-0.045) 05/17/21 17:17 Total Protein 7.7 gm/dl (6.4-8.2) 05/17/21 17:17 Albumin 2.4 gm/dl (3.4-5.0) L 05/17/21 17:17 Globulin 5.3 gm/dl (2.5-4.0) H 05/17/21 17:17 Albumin/Globulin Ratio 0.5 (0.9-2) L 05/17/21 17:17 Procalcitonin 3.70 ng/ml (0-0.5) H 05/17/21 17:17 Urine Color Dark Yellow 05/17/21 19:46 Urine Appearance Cloudy (Clear) A 05/17/21 19:46 Urine pH 5.0 (4.5-7.5) 05/17/21 19:46 Ur Specific [place] 1.019 (1.000-1.030) 05/17/21 19:46 Urine Protein 1+ (Negative) H 05/17/21 19:46 Urine Glucose (UA) Negative (Negative) 05/17/21 19:46 Urine Ketones Negative (Negative) 05/17/21 19:46 Urine Blood Negative (Negative) 05/17/21 19:46 Urine Nitrite Negative (Negative) 05/17/21 19:46 Urine Bilirubin 2+ (Negative) H 05/17/21 19:46 Urine Urobilinogen Positive (Negative) H 05/17/21 19:46 Ur Leukocyte Esterase Negative (Negative) 05/17/21 19:46 Urine WBC (Auto) 1-5 /hpf (0-5) 05/17/21 19:46 Urine RBC (Auto) 10-30 /hpf (0-4) H 05/17/21 19:46 U Hyaline Cast (Auto) 1-5 /lpf (0-5) 05/17/21 19:46 U Epithel Cells (Auto) 0-5 /lpf (0-5) 05/17/21 19:46 Urine Bacteria (Auto) Negative (Negative) 05/17/21 19:46 COVID-19 Eval Order Covid19 at [facility] 05/17/21 21:12 SARS-CoV-2 (PCR) NEGATIVE (Negative) 05/17/21 21:12 Influenza Type A Ag Neg for Influ A (Neg) 05/17/21 18:38 Influ A Molecular Assay Cancelled 05/17/21 18:39 Influenza Type B Ag Neg for Influ B (Neg) 05/17/21 18:38 Influ B Molecular Assay Cancelled 05/17/21 18:39 Impressions Chest X-Ray 05/17/21 16:39 XR chest 1V portable CLINICAL HISTORY: SEPSIS COMPARISON STUDY: Chest radiograph May 11, 2021. FINDINGS: Lung volumes are normal. There are mild bilateral lower lung opacities and interstitial thickening. Linear bibasilar opacities favor atelectasis. There is no pneumothorax or pleural effusion. Cardiac size is normal. Mediastinal contours are normal. There is no evidence for pulmonary edema. IMPRESSION: 1. Mild bilateral lower lung interstitial thickening. This could reflect an infectious process or atelectasis. 2. Linear bibasilar opacities suggestive of atelectasis. ACT 112: Negative or not required by law. Electronically signed by: Blair Wolf M.D. 05/17/2021 5:[address] 05/17/21 16:40 CT OF THE HEAD WITHOUT CONTRAST CLINICAL HISTORY: Headache. COMPARISON STUDY: No previous studies for comparison. TECHNIQUE: Helical axial images of the head were obtained without IV contrast. Automated exposure control was utilized for the study. A dose lowering technique was utilized adhering to the principles of ALARA. FINDINGS: No acute intracranial hemorrhage, midline shift or mass effect is present. The ventricular system is unremarkable. The basal cisterns are patent. No extra-axial collections are present. There are no findings to suggest acute dural sinus thrombosis or acute territorial infarct. No significant calvarial abnormalities are present. Visualized portions of the sinuses and mastoid air cells are clear. IMPRESSION: No acute intracranial findings. ACT 112: Negative or not required by law. Electronically signed by: Blair Wolf M.D. 05/17/2021 7:36 PM Soft Tissue Neck CT 05/17/21 16:40 CT OF THE NECK WITH IV CONTRAST CLINICAL HISTORY: Neck pain, recent myositis, evaluate for infection. COMPARISON STUDY: Neck CT May 14, 2021. TECHNIQUE: Following IV administration of 95 mL of Optiray, helical axial images of the neck were obtained. Sagittal and coronal reconstructions were viewed. Automated exposure control was utilized for the study. A dose lowering technique was utilized adhering to the principles of ALARA. CT DOSE: 3015.19 mGy.cm FINDINGS: Visualized portions of the intracranial contents are unremarkable. Mastoid air cells are clear. There is mild mucosal thickening of the sinuses. No fluid collection within the neck is noted. Major vasculature of the neck is patent. Epiglottis is normal. Parotid and submandibular glands are unremarkable. Is no soft tissue gas within the neck. Left neck inflammation shown on prior CT of May 14, 2021 has nearly completely resolved. Asymmetric enlargement of the left sternocleidomastoid muscle has resolved. Lymphadenopathy has improved. Lung apices are unremarkable. IMPRESSION: Near complete resolution of left neck inflammation shown on CT of May 14, 2021. ACT 112: Negative or not required by law. Electronically signed by: Blair Wolf M.D. 05/17/2021 7:42 PM Abdomen/Pelvis CT 05/17/21 19:17 CT OF THE ABDOMEN AND PELVIS WITH CONTRAST CLINICAL HISTORY: Transaminitis. COMPARISON STUDY: None. TECHNIQUE: Following IV administration of 95 mL of Optiray, axial images of the abdomen and pelvis were obtained from the lung bases to the proximal femurs. Images were reviewed in the axial, sagittal, and coronal planes. IV contrast was administered without complication. Automated exposure control was utilized for the study. A dose lowering technique was utilized adhering to the principles of ALARA. FINDINGS: Linear opacities within the lower lungs reflect atelectasis. There are mild groundglass opacities within the lower lungs. There are trace bilateral pleural effusions. No hepatic lesions are present. Liver morphology is normal. There is no biliary or pancreatic ductal dilatation. Mild gallbladder wall thickening is noted. The gallbladder is not distended. There is mild splenomegaly. The adrenal glands are unremarkable. Is no hydronephrosis. There is prominent enhancement of both ureters. Slight heterogeneity of the right kidney is likely within normal limits. There is no renal abscess. There is no evidence for a bowel obstruction. The appendix is normal. Caliber and wall thickness of small and large bowel are normal. There is trace fluid within the paracolic gutters. IMPRESSION: 1. No biliary ductal dilatation. Normal liver morphology. 2. Mild gallbladder wall thickening, a nonspecific finding. No gallbladder distention. The findings do not suggest acute cholecystitis. 3. Mild splenomegaly. 4. Apparent prominent enhancement of both ureters and slight heterogeneity of the right kidney, likely within normal limits. However, correlation with urinalysis is recommended. 5. Trace bilateral pleural effusions. 6. Normal appendix. No bowel obstruction. No bowel wall thickening. 7. Trace fluid within the bilateral paracolic gutters. ACT 112: Negative or not required by law. Electronically signed by: Blair Wolf M.D. 05/17/2021 7:54 PM Diagnostic Findings LABS FROM 05/15/21: WBC=14.1 ESR=59 [id number]=320 [id number] TBILI=2.5 AST=57 QLG=762 JR=986 CRP=23.6 Code Status & VTE Plan VTE Prophylaxis Plan VTE Prophylaxis will be ordered: Yes PG Care Time/CCT Total # of Minutes Spent Total Time Spent with Patient: Total time spent is greater than 50% in coordination of care (as documented) at patient's floor/unit and/or counseling patient: Coding Level of Care Code 86734 Initial Inpt Care Lvl 3 Diagnoses COVID-19 virus infection U07.1 Abnormal LFTs R94.5 Headache R51.9 Sepsis A41.9
[2021-05-18] MEDS ORDERED: oxyCODONE HCL IR 5 MG TAB (IMMEDIATE RELEASE) PO PRN (03:59)
[2021-05-18] MEDS ORDERED: VANCOMYCIN CONSULT ACTIVE PRN (03:59)
[2021-05-18] MEDS ORDERED: ACETAMINOPHEN 325 MG TAB PO PRN (03:59)
[2021-05-18] MEDS ORDERED: ONDANSETRON INJ 2 MG/ML 2 ML VIAL IV PRN (03:59)
--- NOTE | 2021-05-18 04:56 | Pharmacy Report ---
Pharmacy [facility] Short Note - Date of Service May 18, 2021 - Assessment & Plan Assessment 36 year old M admitted secondary to COVID-19. * Tested positive for COVID on 05/11/21 * Returned to ED 05/14/21 for left sided neck pain and swelling. CT of neck showed possible infectious process. Discharged home on Augmentin. * Returned today with worsening headache, myalgias, ongoing fever, and little oral intake recently. * Febrile. Leukocytosis with neutrophil predomination. SCr above baseline at 1.45. Procalcitonin elevated. Cultures pending. * Started on Vancomycin and Cefepime in ER. Doxycycline added for possible anaplasmosis. Plan Vancomycin * AUC/IRINA is the preferred PK/PD target for vancomycin * AUC guided dosing is effective and associated with decreased risk of nephrotoxicity compared to traditional trough targets * AUC/IRINA goal = 400-600 mg/L.hr * Loading Dose: 2250 mg (20 mg/kg) IV x 1 * Maintenance Dose: 1500 mg IV every 12 hours * Dosing regimen is expected to achieve a steady-state AUC/IRINA and trough of 696 mg/L.hr and 23.8 mcg/mL. There is a 25% risk of nephrotoxicity with this regimen. * Despite steady-state levels being above goal range, want to aggressively treat patient to begin with. Can decrease dose as patient starts to approach steady-state * No level will be ordered unless therapy is to extend beyond 48 hours. Cefepime * 2000 mg IV every 8 hours for sepsis Doxycycline 100 mg IV every 12 hours for anaplasmosis Pharmacy will continue to follow and will adjust dose/frequency as necessary. Thank you.
[2021-05-18] MEDS: LACTATED RINGER'S 1,000 ML IV SCH ×2 (05:32→12:46)
[2021-05-18] MEDS: DOXYCYCLINE HYCLATE 100 MG in DEXTROSE 5% 100 ML IV SCH ×2 (05:33→17:42)
[2021-05-18 05:58] LABS: Basophils # (auto) 0.04 K/uL (0-0.2); Basophils % (auto) 0.2 %; Eosinophils # (auto) 0.18 K/uL (0-0.5); Eosinophils % (auto) 0.9 %; Hematocrit (blood only) 37.9 % (42-52); Hemoglobin 12.4 g/dL (14.0-18.0); Immature Granulocytes # (auto) 0.22 K/uL (0.00-0.02); Immature Granulocytes % (auto) 1.1 %; Lymphocytes # (auto) 0.83 K/uL (1.2-3.4); Lymphocytes % (auto) 4.1 %; Mean Corpuscular Hemoglobin 29.7 pg (25-34); Mean Corpuscular Hgb Conc 32.7 g/dL (32-36); Mean Corpuscular Volume 90.7 fL (80-100); Mean Platelet Volume 10.2 fL (7.4-10.4); Monocytes # (auto) 0.96 K/uL (0.11-0.59); Monocytes % (auto) 4.8 %; Neutrophils # (auto) 17.91 K/uL (1.4-6.5); Neutrophils % (auto) 88.9 %; Platelet Count 239 K/uL (130-400); RDW Coefficient of Variation 14.1 % (11.5-14.5); RDW Standard Deviation 46.6 fL (36.4-46.3); Red Blood Count 4.18 M/uL (4.7-6.1); White Blood Count 20.14 K/uL (4.8-10.8)
[2021-05-18 06:38] LABS: Albumin Level 1.8 gm/dl (3.4-5.0); BUN Creatinine Ratio 18.4 (10-20); Bilirubin Direct 3.7 mg/dl (0-0.2); Calcium 8.4 mg/dl (8.5-10.1); Creatinine Clr Calc Pharmacy 99.3 ml/min; Est GFR (Non-African American) 69.1 ml/min; Potassium 3.6 mmol/L (3.5-5.1)
[2021-05-18 06:43] LABS: RBC Morphology Unremarkable
[2021-05-18 07:22] LABS: Bilirubin,Total 4.8 mg/dl (0.2-1); Ferritin 2310.8 ng/ml (8-388); Total Protein 5.9 gm/dl (6.4-8.2)
[2021-05-18] MEDS ORDERED: CEFEPIME 2,000 MG in SYRINGE 0 ML IV SCH (08:00)
--- NOTE | 2021-05-18 08:05 | Ultrasound Report ---
US gallbladder LIMITED ABDOMEN CLINICAL HISTORY: transaminitis, elevated blirubin. COMPARISON: CT of the abdomen and pelvis from 05/17/2021 TECHNIQUE: Multiple grayscale and color images of the right upper quadrant of the abdomen. FINDINGS: This is a limited examination due to body habitus and overlying bowel gas. Pancreas: The pancreas cannot be visualized. Liver: The liver is homogeneous in echogenicity There is no evidence for a focal mass. There is no in trahepatic biliary duct dilatation. Gallbladder: The gallbladder is distended with mild diffuse thickening of the gallbladder wall. No p ericholecystic edema is seen. No intraluminal calculi are identified. Gutierrez's sign cannot be assesse d as the patient was medicated. Common Bile Duct: (CBD): It is normal in size measuring 6 mm. Inferior Vena Cava (IVC): The imaged IVC is patent. Right kidney: There is no evidence for hydronephrosis, calculus or gross renal mass. The kidney is n ormal in size measuring approximately 12.7 cm in greatest diameter. IMPRESSION: 1. Limited examination as described above. Nonvisualization of pancreas. 2. Distention of the gallbladder with mild diffuse thickening of the gallbladder wall. No other ultra sound findings of acute cholecystitis. However, early acalculous cholecystitis cannot be excluded bas ed on this study. If the patient's pain persists, a hepatobiliary scan may be helpful for further benjamin luation. ACT 112: Positive. There are findings on this exam that require communication between the performing entity and the patient following Patient Test Result Information Act ([place] Act 112) guidelines. Electronically signed by: Kaushal Owen M.D. 05/18/2021 8:04 AM
[2021-05-18] MEDS: ENOXAPARIN INJ 40 MG/0.4 ML SYR SQ SCH (08:17)
--- NOTE | 2021-05-18 09:05 | Magnetic Resonance Report ---
MR VENOGRAM OF THE BRAIN CLINICAL HISTORY: Headache. COMPARISON STUDY: CT of the brain dated 05/17/2021. TECHNIQUE: Sagittal MR venogram of the brain is performed. 3-D reformats are created and assessed. IV contrast was not administered for this examination. FINDINGS: There is no evidence of dural venous sinus thrombosis. The superior sagittal sinus is widel y patent, as are the transverse and sigmoid sinuses. Normal flow voids are maintained in the jugular veins. The inferior sagittal sinus is clear. IMPRESSION: Normal examination. Dictated: 05/18/2021 8:04 AM Transcribed: 05/18/2021 9:01 AM Shawna [id number] KRISTA_Jacob Electronically signed by: Carson Flower M.D. 05/18/2021 9:04 AM
--- NOTE | 2021-05-18 12:06 | Electrocardiogram Report ---
Test Reason : Blood Pressure : / mmHG Vent. Rate : 105 BPM Atrial Rate : 105 BPM P-R Int : 172 ms QRS Dur : 090 ms QT Int : 352 ms P-R-T Axes : 041 029 -31 degrees QTc Int : 465 ms Sinus tachycardia Nonspecific T wave abnormality Abnormal ECG When compared with ECG of 11-MAY-2021 12:57, Nonspecific T wave abnormality now evident in Lateral leads QT has lengthened Confirmed by Narinder Lutz ([id number]) on 05/18/2021 12:05:44 PM Referred By: Lauren Guajardo Confirmed By:Narinder Lutz
--- NOTE | 2021-05-18 12:18 | Gastrointestinal Consultation ---
Date of Consultation May 18, 2021 Assessment & Plan (1) Abnormal LFTs: This is a 36 y/o male admitted w/ febrile illness, recent COVID infection, headache, myalgias, h/o left neck swelling. with leukocytosis. Was started on Augmentin recently. GI consulted for elevated LFTs; this is of unclear etiology; is in a mixed hepatocellular/cholestatic pattern. His INR was WNL. CT/US w/ no obvious biliary obstruction. On empiric ABX for concern for sepsis. Infectious w/u pending. He tolerated full breakfast this AM . On exam abd is soft, he has a mild icterus. Diff dx elevated LFTs includes infectious etiology (COVID vs other), DILI (Augmentin, Tylenol?); biliary obstruction less likely as imaging not suggestive of such. - Would await labs such as acute hep panel, CMV, EBV, tick-borne illness panel, blood cultures - Would follow daily LFTs, INR, CBC - IVF - Continue broad spectrum ABX as per primary team - Will follow labs and determine what if any further GI w/u he should have Thank you for allowing us to participate in the care of this patient. Please call with any acute changes, questions or concerns. Please see addendum below with additional recommendation from my supervising physician. Supervising Physician Co-Signing Physician Notes I have personally seen and examined the patient with Jeannie Guevara PA-C. Her note reflects my exam and findings. I agree with her impression and plan. Agree with looking for infectious hepatitis. Augmentin is also a usual culprit in drug hepatitis as well. Unclear if he would benefit from EUS/ERCP at this point. Follow clinically closely. Nestor Hernandez M.D. History of Present Illness Reason for Consultation: abnormal LFTs Requesting Physician: Dr. Garcia Attending Physician: Sean Rivas DO History of Present Illness This is a 36 y/o male admitted after presenting with fever, body aches, headache. Symptoms began around late April; was seen twice in the ER before being admitted. Initially seen 05/11, flu and Lyme screen neg; however was COVID + on 05/11. He returned 05/14 w/ left neck pain and swelling, CT w/ findings suggestive of infectious process involving the left SCM muscle w/ multiple enlarged cervical lymph nodes. He was DC'd on Augmentin, Tylenol and Advil. he returned 05/17 w/ worsening headache, back pain, ongoing fever. He has had little PO intake. On arrival to the ER was febrile, tachycardic, 96% on room air. Labs notable for elevated LFTs, leukocytosis, elevated procal, mild anemia, low albumin, normal INR. CTAP w/ mild GB thickening, no ayush. US ABD w/ GB distention, CBD 6 mm. Was started on broad spectrum ABX. Acute hep panel, tick-borne illnesses, CMV, EBV pending. COVID testing now NEGATIVE. Today feels maybe somewhat improved. Was given a regular diet for this AM and tolerated plate of eggs, some toast, fluids. This AM WBC up to 20k, total bili 4.8, d bili 3.7, AST WNL, ALT 69, ALP 373. At home usually drinks 2-3 beers a day; however none in the last week. Was taking Tylenol +ibuprofen however pt states was taking according to the bottle and not excessively. Denies using IV/INV drugs. No herbal meds. No prior history of liver issues; no fam hx liver problems. Denies abd pain, nausea, vomiting, dark urine, dumont stools, hematemesis, melena, hematochezia, rashes, leg edema. Allergies Allergy/AdvReac Type Severity Reaction Status Date / Time No Known Allergies Allergy Verified 05/17/21 17:29 Home Medications Medication Instructions Recorded Confirmed Type acetaminophen 500 mg tablet 1,000 mg PO Q6H PRN 05/11/21 05/17/21 History (Tylenol Extra Strength) amoxicillin 875 mg-potassium 1 tab PO BID 10 Days #20 tab 05/14/21 05/17/21 Rx clavulanate 125 mg tablet (Augmentin) hydrocodone 5 mg-acetaminophen 325 1 tab PO Q6H PRN #10 tab 05/14/21 05/17/21 Rx mg tablet ibuprofen 200 mg tablet 400 - 600 mg PO DIRECTED PRN 05/17/21 05/17/21 History Patient History Medical History No significant past medical history Surgical History No significant past surgical history Social History (Reviewed 05/18/21 @ 03:30 by TRUNG Hinkle Smoking Status: Never smoker Hx Alcohol Use: Yes Alcohol type: beer Hx Substance Use: No Preferred Language: Faroese Communication Ability: Effective Certified Lactation Counselor Required: No Beliefs That Will Affect Care: None marital status: Current Living Situation: Spouse Other Information That Helps Us Care for You: No Feels Safe at Home: Yes Safety Concerns: Feels Safe At This Time Assistive Devices: None Physical Exam Constitutional: WD/WN, vitals as above Sitting upright in bedside chair Eyes: mild icterus Respiratory: normal respiratory effort, lungs clear to auscultation Cardiovascular: RRR, no murmur, no edema Gastrointestinal (Abdomen): normal bowel sounds, soft, nontender, no hepatosplenomegaly Skin: no rashes, warm and dry Psychiatric: A+Ox3, euthymic affect Results & Data ([facility]) Vital Signs (Past 12 Hours) Vital Signs Temp Pulse Pulse Resp BP Pulse Ox 05/18/21 07:06 36.9 C 92 H 16 114/78 96 05/18/21 03:30 36.6 C 88 18 111/70 95 05/18/21 02:40 92 H 95 05/18/21 02:30 91 H 22 96 05/18/21 02:20 93 H 26 H 93 05/18/21 02:10 97 H 24 94 05/18/21 02:00 95 H 31 H 93 05/18/21 01:50 95 H 28 H 93 05/18/21 01:40 102 H 24 94 05/18/21 01:30 99 H 24 94 05/18/21 01:20 101 H 25 H 94 05/18/21 01:10 99 H 26 H 92 05/18/21 01:00 115 H 21 95 05/18/21 00:50 111 H 22 93 05/18/21 00:40 106 H 26 H 94 05/18/21 00:30 103 H 22 95 05/18/21 00:20 106 H 26 H 95 05/18/21 00:15 37.7 C H Laboratory Results 05/18/21 05/18/21 05/18/21 Range/Units 11:51 11:51 11:51 WBC (4.8-10.8) K/uL RBC (4.7-6.1) M/uL Hgb (14.0-18.0) g/dL Hct (42-52) % MCV (80-100) fL MCH (25-34) pg MCHC (32-36) g/dL RDW Std Deviation (36.4-46.3) fL RDW Coeff of Aida (11.5-14.5) % Plt Count (130-400) K/uL MPV (7.4-10.4) fL Immature Gran % (Auto) % Neut % (Auto) % Lymph % (Auto) % [place] % (Auto) % Eos % (Auto) % Baso % (Auto) % Neut # (Auto) (1.4-6.5) K/uL Lymph # (Auto) (1.2-3.4) K/uL [place] # (Auto) (0.11-0.59) K/uL Eos # (Auto) (0-0.5) K/uL Baso # (Auto) (0-0.2) K/uL Immature Gran # (Auto) (0.00-0.02) K/uL RBC Morphology ESR 122 H (0-15) mm/hr PT (9.0-12.0) Seconds INR (0.9-1.1) APTT (21.0-31.0) Seconds PTT Ratio Sodium (136-145) mmol/L Potassium (3.5-5.1) mmol/L Chloride (98-107) mmol/L Carbon Dioxide (21-32) mmol/L Anion Gap (3-11) BUN (7-18) mg/dl Creatinine (0.6-1.4) mg/dl Est Cr Clr Drug Dosing ml/min Est GFR ( Amer) ml/min Est GFR (Non-Af Amer) ml/min BUN/Creatinine Ratio (10-20) Glucose (70-99) mg/dl Lactate (0.4-2.0) mmol/L Calcium (8.5-10.1) mg/dl Magnesium (1.8-2.4) mg/dl Ferritin (8-388) ng/ml Total Bilirubin (0.2-1) mg/dl Direct Bilirubin (0-0.2) mg/dl AST (15-37) U/L ALT (12-78) U/L Alkaline Phosphatase (45-117) U/L Total Creatine Kinase (39-308) U/L Troponin I (0-0.045) ng/ml C-Reactive Protein Pending Total Protein (6.4-8.2) gm/dl Albumin (3.4-5.0) gm/dl Globulin (2.5-4.0) gm/dl Albumin/Globulin Ratio (0.9-2) Lipase (73-393) U/L Procalcitonin (0-0.5) ng/ml Urine Color Urine Appearance (Clear) Urine pH (4.5-7.5) Ur Specific [place] (1.000-1.030) Urine Protein (Negative) Urine Glucose (UA) (Negative) Urine Ketones (Negative) Urine Blood (Negative) Urine Nitrite (Negative) Urine Bilirubin (Negative) Urine Urobilinogen (Negative) Ur Leukocyte Esterase (Negative) Urine WBC (Auto) (0-5) /hpf Urine RBC (Auto) (0-4) /hpf U Hyaline Cast (Auto) (0-5) /lpf U Epithel Cells (Auto) (0-5) /lpf Urine Bacteria (Auto) (Negative) Acetaminophen (10-30) ug/ml Anaplasma Smear A. phagocytophilum DNA Babesia Smear Babesia microti DNA PCR Lyme Disease IgG Ab Lyme Disease IgM Ab COVID-19 Eval Order SARS-CoV-2 (PCR) (Negative) CMV IgM Ab CMV IgG Ab/TORCH EBV Capsid Ag IgG Ab EBV Capsid Ag IgM Ab EBV EA Restrict+Diffuse EBV Nuclear Antigen Ab EBV Antibody Interp Hepatitis A IgM Ab Hep Bs Antigen Hep B Core IgM Ab Hepatitis C Antibody Monoscreen Influenza Type A Ag (Neg) Influ A Molecular Assay Influenza Type B Ag (Neg) Influ B Molecular Assay Parvovirus IgG Ab Index Pending Parvovirus IgM Ab Index Pending Anti-Streptolysin O Ab Pending Miscellaneous Test 05/18/21 05/18/21 05/18/21 Range/Units 11:51 05:23 05:23 WBC (4.8-10.8) K/uL RBC (4.7-6.1) M/uL Hgb (14.0-18.0) g/dL Hct (42-52) % MCV (80-100) fL MCH (25-34) pg MCHC (32-36) g/dL RDW Std Deviation (36.4-46.3) fL RDW Coeff of Aida (11.5-14.5) % Plt Count (130-400) K/uL MPV (7.4-10.4) fL Immature Gran % (Auto) % Neut % (Auto) % Lymph % (Auto) % [place] % (Auto) % Eos % (Auto) % Baso % (Auto) % Neut # (Auto) (1.4-6.5) K/uL Lymph # (Auto) (1.2-3.4) K/uL [place] # (Auto) (0.11-0.59) K/uL Eos # (Auto) (0-0.5) K/uL Baso # (Auto) (0-0.2) K/uL Immature Gran # (Auto) (0.00-0.02) K/uL RBC Morphology ESR (0-15) mm/hr PT (9.0-12.0) Seconds INR (0.9-1.1) APTT (21.0-31.0) Seconds PTT Ratio Sodium 135 L (136-145) mmol/L Potassium 3.6 (3.5-5.1) mmol/L Chloride 102 (98-107) mmol/L Carbon Dioxide 26 (21-32) mmol/L Anion Gap 7.0 (3-11) BUN 24 H (7-18) mg/dl Creatinine 1.31 (0.6-1.4) mg/dl Est Cr Clr Drug Dosing 99.3 ml/min Est GFR ( Amer) 80.0 ml/min Est GFR (Non-Af Amer) 69.1 ml/min BUN/Creatinine Ratio 18.4 (10-20) Glucose 138 H (70-99) mg/dl Lactate (0.4-2.0) mmol/L Calcium 8.4 L (8.5-10.1) mg/dl Magnesium (1.8-2.4) mg/dl Ferritin 2310.8 H (8-388) ng/ml Total Bilirubin 4.8 H (0.2-1) mg/dl Direct Bilirubin 3.7 H (0-0.2) mg/dl AST 34 (15-37) U/L ALT 79 H (12-78) U/L Alkaline Phosphatase 373 H (45-117) U/L Total Creatine Kinase (39-308) U/L Troponin I (0-0.045) ng/ml C-Reactive Protein Total Protein 5.9 L D (6.4-8.2) gm/dl Albumin 1.8 L (3.4-5.0) gm/dl Globulin (2.5-4.0) gm/dl Albumin/Globulin Ratio (0.9-2) Lipase 159 (73-393) U/L Procalcitonin (0-0.5) ng/ml Urine Color Urine Appearance (Clear) Urine pH (4.5-7.5) Ur Specific [place] (1.000-1.030) Urine Protein (Negative) Urine Glucose (UA) (Negative) Urine Ketones (Negative) Urine Blood (Negative) Urine Nitrite (Negative) Urine Bilirubin (Negative) Urine Urobilinogen (Negative) Ur Leukocyte Esterase (Negative) Urine WBC (Auto) (0-5) /hpf Urine RBC (Auto) (0-4) /hpf U Hyaline Cast (Auto) (0-5) /lpf U Epithel Cells (Auto) (0-5) /lpf Urine Bacteria (Auto) (Negative) Acetaminophen (10-30) ug/ml Anaplasma Smear A. phagocytophilum DNA Babesia Smear Babesia microti DNA PCR Lyme Disease IgG Ab Pending Lyme Disease IgM Ab Pending COVID-19 Eval Order SARS-CoV-2 (PCR) (Negative) CMV IgM Ab CMV IgG Ab/TORCH EBV Capsid Ag IgG Ab EBV Capsid Ag IgM Ab EBV EA Restrict+Diffuse EBV Nuclear Antigen Ab EBV Antibody Interp Hepatitis A IgM Ab Hep Bs Antigen Hep B Core IgM Ab Hepatitis C Antibody Monoscreen Pending Influenza Type A Ag (Neg) Influ A Molecular Assay Influenza Type B Ag (Neg) Influ B Molecular Assay Parvovirus IgG Ab Index Parvovirus IgM Ab Index Anti-Streptolysin O Ab Miscellaneous Test Pending 05/18/21 05/18/21 05/18/21 Range/Units 05:23 05:23 05:23 WBC 20.14 H (4.8-10.8) K/uL RBC 4.18 L (4.7-6.1) M/uL Hgb 12.4 L (14.0-18.0) g/dL Hct 37.9 L (42-52) % MCV 90.7 (80-100) fL MCH 29.7 (25-34) pg MCHC 32.7 (32-36) g/dL RDW Std Deviation 46.6 H (36.4-46.3) fL RDW Coeff of Aida 14.1 (11.5-14.5) % Plt Count 239 (130-400) K/uL MPV 10.2 (7.4-10.4) fL Immature Gran % (Auto) 1.1 % Neut % (Auto) 88.9 % Lymph % (Auto) 4.1 % [place] % (Auto) 4.8 % Eos % (Auto) 0.9 % Baso % (Auto) 0.2 % Neut # (Auto) 17.91 H (1.4-6.5) K/uL Lymph # (Auto) 0.83 L (1.2-3.4) K/uL [place] # (Auto) 0.96 H (0.11-0.59) K/uL Eos # (Auto) 0.18 (0-0.5) K/uL Baso # (Auto) 0.04 (0-0.2) K/uL Immature Gran # (Auto) 0.22 H (0.00-0.02) K/uL RBC Morphology Unremarkable ESR (0-15) mm/hr PT (9.0-12.0) Seconds INR (0.9-1.1) APTT (21.0-31.0) Seconds PTT Ratio Sodium (136-145) mmol/L Potassium (3.5-5.1) mmol/L Chloride (98-107) mmol/L Carbon Dioxide (21-32) mmol/L Anion Gap (3-11) BUN (7-18) mg/dl Creatinine (0.6-1.4) mg/dl Est Cr Clr Drug Dosing ml/min Est GFR ( Amer) ml/min Est GFR (Non-Af Amer) ml/min BUN/Creatinine Ratio (10-20) Glucose (70-99) mg/dl Lactate (0.4-2.0) mmol/L Calcium (8.5-10.1) mg/dl Magnesium (1.8-2.4) mg/dl Ferritin (8-388) ng/ml Total Bilirubin (0.2-1) mg/dl Direct Bilirubin (0-0.2) mg/dl AST (15-37) U/L ALT (12-78) U/L Alkaline Phosphatase (45-117) U/L Total Creatine Kinase (39-308) U/L Troponin I (0-0.045) ng/ml C-Reactive Protein Total Protein (6.4-8.2) gm/dl Albumin (3.4-5.0) gm/dl Globulin (2.5-4.0) gm/dl Albumin/Globulin Ratio (0.9-2) Lipase (73-393) U/L Procalcitonin (0-0.5) ng/ml Urine Color Urine Appearance (Clear) Urine pH (4.5-7.5) Ur Specific [place] (1.000-1.030) Urine Protein (Negative) Urine Glucose (UA) (Negative) Urine Ketones (Negative) Urine Blood (Negative) Urine Nitrite (Negative) Urine Bilirubin (Negative) Urine Urobilinogen (Negative) Ur Leukocyte Esterase (Negative) Urine WBC (Auto) (0-5) /hpf Urine RBC (Auto) (0-4) /hpf U Hyaline Cast (Auto) (0-5) /lpf U Epithel Cells (Auto) (0-5) /lpf Urine Bacteria (Auto) (Negative) Acetaminophen (10-30) ug/ml Anaplasma Smear See Comment A. phagocytophilum DNA Babesia Smear See Comment Babesia microti DNA PCR Lyme Disease IgG Ab Lyme Disease IgM Ab COVID-19 Eval Order SARS-CoV-2 (PCR) (Negative) CMV IgM Ab Pending CMV IgG Ab/TORCH Pending EBV Capsid Ag IgG Ab Pending EBV Capsid Ag IgM Ab Pending EBV EA Restrict+Diffuse Pending EBV Nuclear Antigen Ab Pending EBV Antibody Interp Pending Hepatitis A IgM Ab Hep Bs Antigen Hep B Core IgM Ab Hepatitis C Antibody Monoscreen Influenza Type A Ag (Neg) Influ A Molecular Assay Influenza Type B Ag (Neg) Influ B Molecular Assay Parvovirus IgG Ab Index Parvovirus IgM Ab Index Anti-Streptolysin O Ab Miscellaneous Test 05/18/21 05/17/21 05/17/21 Range/Units 05:23 21:12 21:12 WBC (4.8-10.8) K/uL RBC (4.7-6.1) M/uL Hgb (14.0-18.0) g/dL Hct (42-52) % MCV (80-100) fL MCH (25-34) pg MCHC (32-36) g/dL RDW Std Deviation (36.4-46.3) fL RDW Coeff of Aida (11.5-14.5) % Plt Count (130-400) K/uL MPV (7.4-10.4) fL Immature Gran % (Auto) % Neut % (Auto) % Lymph % (Auto) % [place] % (Auto) % Eos % (Auto) % Baso % (Auto) % Neut # (Auto) (1.4-6.5) K/uL Lymph # (Auto) (1.2-3.4) K/uL [place] # (Auto) (0.11-0.59) K/uL Eos # (Auto) (0-0.5) K/uL Baso # (Auto) (0-0.2) K/uL Immature Gran # (Auto) (0.00-0.02) K/uL RBC Morphology ESR (0-15) mm/hr PT (9.0-12.0) Seconds INR (0.9-1.1) APTT (21.0-31.0) Seconds PTT Ratio Sodium (136-145) mmol/L Potassium (3.5-5.1) mmol/L Chloride (98-107) mmol/L Carbon Dioxide (21-32) mmol/L Anion Gap (3-11) BUN (7-18) mg/dl Creatinine (0.6-1.4) mg/dl Est Cr Clr Drug Dosing ml/min Est GFR ( Amer) ml/min Est GFR (Non-Af Amer) ml/min BUN/Creatinine Ratio (10-20) Glucose (70-99) mg/dl Lactate (0.4-2.0) mmol/L Calcium (8.5-10.1) mg/dl Magnesium (1.8-2.4) mg/dl Ferritin (8-388) ng/ml Total Bilirubin (0.2-1) mg/dl Direct Bilirubin (0-0.2) mg/dl AST (15-37) U/L ALT (12-78) U/L Alkaline Phosphatase (45-117) U/L Total Creatine Kinase (39-308) U/L Troponin I (0-0.045) ng/ml C-Reactive Protein Total Protein (6.4-8.2) gm/dl Albumin (3.4-5.0) gm/dl Globulin (2.5-4.0) gm/dl Albumin/Globulin Ratio (0.9-2) Lipase (73-393) U/L Procalcitonin (0-0.5) ng/ml Urine Color Urine Appearance (Clear) Urine pH (4.5-7.5) Ur Specific [place] (1.000-1.030) Urine Protein (Negative) Urine Glucose (UA) (Negative) Urine Ketones (Negative) Urine Blood (Negative) Urine Nitrite (Negative) Urine Bilirubin (Negative) Urine Urobilinogen (Negative) Ur Leukocyte Esterase (Negative) Urine WBC (Auto) (0-5) /hpf Urine RBC (Auto) (0-4) /hpf U Hyaline Cast (Auto) (0-5) /lpf U Epithel Cells (Auto) (0-5) /lpf Urine Bacteria (Auto) (Negative) Acetaminophen (10-30) ug/ml Anaplasma Smear A. phagocytophilum DNA Pending Babesia Smear Babesia microti DNA PCR Lyme Disease IgG Ab Lyme Disease IgM Ab COVID-19 Eval Order Covid19 at [facility] SARS-CoV-2 (PCR) NEGATIVE (Negative) CMV IgM Ab CMV IgG Ab/TORCH EBV Capsid Ag IgG Ab EBV Capsid Ag IgM Ab EBV EA Restrict+Diffuse EBV Nuclear Antigen Ab EBV Antibody Interp Hepatitis A IgM Ab Hep Bs Antigen Hep B Core IgM Ab Hepatitis C Antibody Monoscreen Influenza Type A Ag (Neg) Influ A Molecular Assay Influenza Type B Ag (Neg) Influ B Molecular Assay Parvovirus IgG Ab Index Parvovirus IgM Ab Index Anti-Streptolysin O Ab Miscellaneous Test 05/17/21 05/17/21 05/17/21 Range/Units 19:46 18:39 18:38 WBC (4.8-10.8) K/uL RBC (4.7-6.1) M/uL Hgb (14.0-18.0) g/dL Hct (42-52) % MCV (80-100) fL MCH (25-34) pg MCHC (32-36) g/dL RDW Std Deviation (36.4-46.3) fL RDW Coeff of Aida (11.5-14.5) % Plt Count (130-400) K/uL MPV (7.4-10.4) fL Immature Gran % (Auto) % Neut % (Auto) % Lymph % (Auto) % [place] % (Auto) % Eos % (Auto) % Baso % (Auto) % Neut # (Auto) (1.4-6.5) K/uL Lymph # (Auto) (1.2-3.4) K/uL [place] # (Auto) (0.11-0.59) K/uL Eos # (Auto) (0-0.5) K/uL Baso # (Auto) (0-0.2) K/uL Immature Gran # (Auto) (0.00-0.02) K/uL RBC Morphology ESR (0-15) mm/hr PT (9.0-12.0) Seconds INR (0.9-1.1) APTT (21.0-31.0) Seconds PTT Ratio Sodium (136-145) mmol/L Potassium (3.5-5.1) mmol/L Chloride (98-107) mmol/L Carbon Dioxide (21-32) mmol/L Anion Gap (3-11) BUN (7-18) mg/dl Creatinine (0.6-1.4) mg/dl Est Cr Clr Drug Dosing ml/min Est GFR ( Amer) ml/min Est GFR (Non-Af Amer) ml/min BUN/Creatinine Ratio (10-20) Glucose (70-99) mg/dl Lactate (0.4-2.0) mmol/L Calcium (8.5-10.1) mg/dl Magnesium (1.8-2.4) mg/dl Ferritin (8-388) ng/ml Total Bilirubin (0.2-1) mg/dl Direct Bilirubin (0-0.2) mg/dl AST (15-37) U/L ALT (12-78) U/L Alkaline Phosphatase (45-117) U/L Total Creatine Kinase (39-308) U/L Troponin I (0-0.045) ng/ml C-Reactive Protein Total Protein (6.4-8.2) gm/dl Albumin (3.4-5.0) gm/dl Globulin (2.5-4.0) gm/dl Albumin/Globulin Ratio (0.9-2) Lipase (73-393) U/L Procalcitonin (0-0.5) ng/ml Urine Color Dark Yellow Urine Appearance Cloudy A (Clear) Urine pH 5.0 (4.5-7.5) Ur Specific [place] 1.019 (1.000-1.030) Urine Protein 1+ H (Negative) Urine Glucose (UA) Negative (Negative) Urine Ketones Negative (Negative) Urine Blood Negative (Negative) Urine Nitrite Negative (Negative) Urine Bilirubin 2+ H (Negative) Urine Urobilinogen Positive H (Negative) Ur Leukocyte Esterase Negative (Negative) Urine WBC (Auto) 1-5 (0-5) /hpf Urine RBC (Auto) 10-30 H (0-4) /hpf U Hyaline Cast (Auto) 1-5 (0-5) /lpf U Epithel Cells (Auto) 0-5 (0-5) /lpf Urine Bacteria (Auto) Negative (Negative) Acetaminophen (10-30) ug/ml Anaplasma Smear A. phagocytophilum DNA Babesia Smear Babesia microti DNA PCR Lyme Disease IgG Ab Lyme Disease IgM Ab COVID-19 Eval Order SARS-CoV-2 (PCR) (Negative) CMV IgM Ab CMV IgG Ab/TORCH EBV Capsid Ag IgG Ab EBV Capsid Ag IgM Ab EBV EA Restrict+Diffuse EBV Nuclear Antigen Ab EBV Antibody Interp Hepatitis A IgM Ab Hep Bs Antigen Hep B Core IgM Ab Hepatitis C Antibody Monoscreen Influenza Type A Ag Neg for Influ A (Neg) Influ A Molecular Assay Cancelled Influenza Type B Ag Neg for Influ B (Neg) Influ B Molecular Assay Cancelled Parvovirus IgG Ab Index Parvovirus IgM Ab Index Anti-Streptolysin O Ab Miscellaneous Test 05/17/21 05/17/21 05/17/21 Range/Units 17:22 17:22 17:17 WBC (4.8-10.8) K/uL RBC (4.7-6.1) M/uL Hgb (14.0-18.0) g/dL Hct (42-52) % MCV (80-100) fL MCH (25-34) pg MCHC (32-36) g/dL RDW Std Deviation (36.4-46.3) fL RDW Coeff of Aida (11.5-14.5) % Plt Count (130-400) K/uL MPV (7.4-10.4) fL Immature Gran % (Auto) % Neut % (Auto) % Lymph % (Auto) % [place] % (Auto) % Eos % (Auto) % Baso % (Auto) % Neut # (Auto) (1.4-6.5) K/uL Lymph # (Auto) (1.2-3.4) K/uL [place] # (Auto) (0.11-0.59) K/uL Eos # (Auto) (0-0.5) K/uL Baso # (Auto) (0-0.2) K/uL Immature Gran # (Auto) (0.00-0.02) K/uL RBC Morphology ESR (0-15) mm/hr PT (9.0-12.0) Seconds INR (0.9-1.1) APTT (21.0-31.0) Seconds PTT Ratio Sodium (136-145) mmol/L Potassium (3.5-5.1) mmol/L Chloride (98-107) mmol/L Carbon Dioxide (21-32) mmol/L Anion Gap (3-11) BUN (7-18) mg/dl Creatinine (0.6-1.4) mg/dl Est Cr Clr Drug Dosing ml/min Est GFR ( Amer) ml/min Est GFR (Non-Af Amer) ml/min BUN/Creatinine Ratio (10-20) Glucose (70-99) mg/dl Lactate (0.4-2.0) mmol/L Calcium (8.5-10.1) mg/dl Magnesium (1.8-2.4) mg/dl Ferritin (8-388) ng/ml Total Bilirubin (0.2-1) mg/dl Direct Bilirubin (0-0.2) mg/dl AST (15-37) U/L ALT (12-78) U/L Alkaline Phosphatase (45-117) U/L Total Creatine Kinase (39-308) U/L Troponin I (0-0.045) ng/ml C-Reactive Protein Total Protein (6.4-8.2) gm/dl Albumin (3.4-5.0) gm/dl Globulin (2.5-4.0) gm/dl Albumin/Globulin Ratio (0.9-2) Lipase (73-393) U/L Procalcitonin (0-0.5) ng/ml Urine Color Urine Appearance (Clear) Urine pH (4.5-7.5) Ur Specific [place] (1.000-1.030) Urine Protein (Negative) Urine Glucose (UA) (Negative) Urine Ketones (Negative) Urine Blood (Negative) Urine Nitrite (Negative) Urine Bilirubin (Negative) Urine Urobilinogen (Negative) Ur Leukocyte Esterase (Negative) Urine WBC (Auto) (0-5) /hpf Urine RBC (Auto) (0-4) /hpf U Hyaline Cast (Auto) (0-5) /lpf U Epithel Cells (Auto) (0-5) /lpf Urine Bacteria (Auto) (Negative) Acetaminophen (10-30) ug/ml Anaplasma Smear A. phagocytophilum DNA Babesia Smear Babesia microti DNA PCR Pending Lyme Disease IgG Ab Lyme Disease IgM Ab COVID-19 Eval Order SARS-CoV-2 (PCR) (Negative) CMV IgM Ab CMV IgG Ab/TORCH EBV Capsid Ag IgG Ab EBV Capsid Ag IgM Ab EBV EA Restrict+Diffuse EBV Nuclear Antigen Ab EBV Antibody Interp Hepatitis A IgM Ab Pending Hep Bs Antigen Pending Hep B Core IgM Ab Pending Hepatitis C Antibody Pending Monoscreen Influenza Type A Ag (Neg) Influ A Molecular Assay Influenza Type B Ag (Neg) Influ B Molecular Assay Parvovirus IgG Ab Index Parvovirus IgM Ab Index Anti-Streptolysin O Ab Miscellaneous Test 05/17/21 05/17/21 05/17/21 Range/Units 17:17 17:17 17:17 WBC 18.77 H (4.8-10.8) K/uL RBC 4.77 (4.7-6.1) M/uL Hgb 14.6 (14.0-18.0) g/dL Hct 43.2 (42-52) % MCV 90.6 (80-100) fL MCH 30.6 (25-34) pg MCHC 33.8 (32-36) g/dL RDW Std Deviation 45.7 (36.4-46.3) fL RDW Coeff of Aida 13.8 (11.5-14.5) % Plt Count 279 (130-400) K/uL MPV 10.2 (7.4-10.4) fL Immature Gran % (Auto) 0.7 % Neut % (Auto) 91.0 % Lymph % (Auto) 3.2 % [place] % (Auto) 4.0 % Eos % (Auto) 0.9 % Baso % (Auto) 0.2 % Neut # (Auto) 17.08 H (1.4-6.5) K/uL Lymph # (Auto) 0.61 L (1.2-3.4) K/uL [place] # (Auto) 0.76 H (0.11-0.59) K/uL Eos # (Auto) 0.16 (0-0.5) K/uL Baso # (Auto) 0.03 (0-0.2) K/uL Immature Gran # (Auto) 0.13 H (0.00-0.02) K/uL RBC Morphology ESR (0-15) mm/hr PT 10.6 (9.0-12.0) Seconds INR 1.0 (0.9-1.1) APTT 23.1 (21.0-31.0) Seconds PTT Ratio 0.9 Sodium (136-145) mmol/L Potassium (3.5-5.1) mmol/L Chloride (98-107) mmol/L Carbon Dioxide (21-32) mmol/L Anion Gap (3-11) BUN (7-18) mg/dl Creatinine (0.6-1.4) mg/dl Est Cr Clr Drug Dosing ml/min Est GFR ( Amer) ml/min Est GFR (Non-Af Amer) ml/min BUN/Creatinine Ratio (10-20) Glucose (70-99) mg/dl Lactate 1.8 (0.4-2.0) mmol/L Calcium (8.5-10.1) mg/dl Magnesium (1.8-2.4) mg/dl Ferritin (8-388) ng/ml Total Bilirubin (0.2-1) mg/dl Direct Bilirubin (0-0.2) mg/dl AST (15-37) U/L ALT (12-78) U/L Alkaline Phosphatase (45-117) U/L Total Creatine Kinase (39-308) U/L Troponin I (0-0.045) ng/ml C-Reactive Protein Total Protein (6.4-8.2) gm/dl Albumin (3.4-5.0) gm/dl Globulin (2.5-4.0) gm/dl Albumin/Globulin Ratio (0.9-2) Lipase (73-393) U/L Procalcitonin (0-0.5) ng/ml Urine Color Urine Appearance (Clear) Urine pH (4.5-7.5) Ur Specific [place] (1.000-1.030) Urine Protein (Negative) Urine Glucose (UA) (Negative) Urine Ketones (Negative) Urine Blood (Negative) Urine Nitrite (Negative) Urine Bilirubin (Negative) Urine Urobilinogen (Negative) Ur Leukocyte Esterase (Negative) Urine WBC (Auto) (0-5) /hpf Urine RBC (Auto) (0-4) /hpf U Hyaline Cast (Auto) (0-5) /lpf U Epithel Cells (Auto) (0-5) /lpf Urine Bacteria (Auto) (Negative) Acetaminophen (10-30) ug/ml Anaplasma Smear A. phagocytophilum DNA Babesia Smear Babesia microti DNA PCR Lyme Disease IgG Ab Lyme Disease IgM Ab COVID-19 Eval Order SARS-CoV-2 (PCR) (Negative) CMV IgM Ab CMV IgG Ab/TORCH EBV Capsid Ag IgG Ab EBV Capsid Ag IgM Ab EBV EA Restrict+Diffuse EBV Nuclear Antigen Ab EBV Antibody Interp Hepatitis A IgM Ab Hep Bs Antigen Hep B Core IgM Ab Hepatitis C Antibody Monoscreen Influenza Type A Ag (Neg) Influ A Molecular Assay Influenza Type B Ag (Neg) Influ B Molecular Assay Parvovirus IgG Ab Index Parvovirus IgM Ab Index Anti-Streptolysin O Ab Miscellaneous Test 05/17/21 05/17/21 Range/Units 17:17 17:17 WBC (4.8-10.8) K/uL RBC (4.7-6.1) M/uL Hgb (14.0-18.0) g/dL Hct (42-52) % MCV (80-100) fL MCH (25-34) pg MCHC (32-36) g/dL RDW Std Deviation (36.4-46.3) fL RDW Coeff of Aida (11.5-14.5) % Plt Count (130-400) K/uL MPV (7.4-10.4) fL Immature Gran % (Auto) % Neut % (Auto) % Lymph % (Auto) % [place] % (Auto) % Eos % (Auto) % Baso % (Auto) % Neut # (Auto) (1.4-6.5) K/uL Lymph # (Auto) (1.2-3.4) K/uL [place] # (Auto) (0.11-0.59) K/uL Eos # (Auto) (0-0.5) K/uL Baso # (Auto) (0-0.2) K/uL Immature Gran # (Auto) (0.00-0.02) K/uL RBC Morphology ESR (0-15) mm/hr PT (9.0-12.0) Seconds INR (0.9-1.1) APTT (21.0-31.0) Seconds PTT Ratio Sodium 134 L (136-145) mmol/L Potassium 3.7 (3.5-5.1) mmol/L Chloride 97 L (98-107) mmol/L Carbon Dioxide 27 (21-32) mmol/L Anion Gap 10.0 (3-11) BUN 27 H (7-18) mg/dl Creatinine 1.45 H (0.6-1.4) mg/dl Est Cr Clr Drug Dosing 90.8 ml/min Est GFR ( Amer) 70.8 ml/min Est GFR (Non-Af Amer) 61.1 ml/min BUN/Creatinine Ratio 18.4 (10-20) Glucose 151 H (70-99) mg/dl Lactate (0.4-2.0) mmol/L Calcium 9.1 (8.5-10.1) mg/dl Magnesium 2.4 (1.8-2.4) mg/dl Ferritin (8-388) ng/ml Total Bilirubin 4.9 H (0.2-1) mg/dl Direct Bilirubin 3.7 H (0-0.2) mg/dl AST 45 H (15-37) U/L ALT 109 H (12-78) U/L Alkaline Phosphatase 358 H (45-117) U/L Total Creatine Kinase 16 L (39-308) U/L Troponin I 0.039 (0-0.045) ng/ml C-Reactive Protein Total Protein 7.7 (6.4-8.2) gm/dl Albumin 2.4 L (3.4-5.0) gm/dl Globulin 5.3 H (2.5-4.0) gm/dl Albumin/Globulin Ratio 0.5 L (0.9-2) Lipase (73-393) U/L Procalcitonin 3.70 H (0-0.5) ng/ml Urine Color Urine Appearance (Clear) Urine pH (4.5-7.5) Ur Specific [place] (1.000-1.030) Urine Protein (Negative) Urine Glucose (UA) (Negative) Urine Ketones (Negative) Urine Blood (Negative) Urine Nitrite (Negative) Urine Bilirubin (Negative) Urine Urobilinogen (Negative) Ur Leukocyte Esterase (Negative) Urine WBC (Auto) (0-5) /hpf Urine RBC (Auto) (0-4) /hpf U Hyaline Cast (Auto) (0-5) /lpf U Epithel Cells (Auto) (0-5) /lpf Urine Bacteria (Auto) (Negative) Acetaminophen (10-30) ug/ml Anaplasma Smear A. phagocytophilum DNA Babesia Smear Babesia microti DNA PCR Lyme Disease IgG Ab Lyme Disease IgM Ab COVID-19 Eval Order SARS-CoV-2 (PCR) (Negative) CMV IgM Ab CMV IgG Ab/TORCH EBV Capsid Ag IgG Ab EBV Capsid Ag IgM Ab EBV EA Restrict+Diffuse EBV Nuclear Antigen Ab EBV Antibody Interp Hepatitis A IgM Ab Hep Bs Antigen Hep B Core IgM Ab Hepatitis C Antibody Monoscreen Influenza Type A Ag (Neg) Influ A Molecular Assay Influenza Type B Ag (Neg) Influ B Molecular Assay Parvovirus IgG Ab Index Parvovirus IgM Ab Index Anti-Streptolysin O Ab Miscellaneous Test Diagnostic Findings CTAP: TECHNIQUE: Following IV administration of 95 mL of Optiray, axial images of the abdomen and pelvis were obtained from the lung bases to the proximal femurs. Images were reviewed in the axial, sagittal, and coronal planes. IV contrast was administered without complication. Automated exposure control was utilized for the study. A dose lowering technique was utilized adhering to the principles of ALARA. FINDINGS: Linear opacities within the lower lungs reflect atelectasis. There are mild groundglass opacities within the lower lungs. There are trace bilateral pleural effusions. No hepatic lesions are present. Liver morphology is normal. There is no biliary or pancreatic ductal dilatation. Mild gallbladder wall thickening is noted. The gallbladder is not distended. There is mild splenomegaly. The adrenal glands are unremarkable. Is no hydronephrosis. There is prominent enhancement of both ureters. Slight heterogeneity of the right kidney is likely within normal limits. There is no renal abscess. There is no evidence for a bowel obstruction. The appendix is normal. Caliber and wall thickness of small and large bowel are normal. There is trace fluid within the paracolic gutters. IMPRESSION: 1. No biliary ductal dilatation. Normal liver morphology. 2. Mild gallbladder wall thickening, a nonspecific finding. No gallbladder distention. The findings do not suggest acute cholecystitis. 3. Mild splenomegaly. 4. Apparent prominent enhancement of both ureters and slight heterogeneity of the right kidney, likely within normal limits. However, correlation with urinalysis is recommended. 5. Trace bilateral pleural effusions. 6. Normal appendix. No bowel obstruction. No bowel wall thickening. 7. Trace fluid within the bilateral paracolic gutters. US ABD: FINDINGS: This is a limited examination due to body habitus and overlying bowel gas. Pancreas: The pancreas cannot be visualized. Liver: The liver is homogeneous in echogenicity There is no evidence for a focal mass. There is no intrahepatic biliary duct dilatation. Gallbladder: The gallbladder is distended with mild diffuse thickening of the gallbladder wall. No pericholecystic edema is seen. No intraluminal calculi are identified. Gutierrez's sign cannot be assessed as the patient was medicated. Common Bile Duct: (CBD): It is normal in size measuring 6 mm. Inferior Vena Cava (IVC): The imaged IVC is patent. Right kidney: There is no evidence for hydronephrosis, calculus or gross renal mass. The kidney is normal in size measuring approximately 12.7 cm in greatest diameter. IMPRESSION: 1. Limited examination as described above. Nonvisualization of pancreas. 2. Distention of the gallbladder with mild diffuse thickening of the gallbladder wall. No other ultrasound findings of acute cholecystitis. However, early acalculous cholecystitis cannot be excluded based on this study. If the patient's pain persists, a hepatobiliary scan may be helpful for further evaluation.
[2021-05-18 12:42] LABS: Monotest Positive (Negative)
[2021-05-18 13:16] LABS: Lyme Ab IgM w/WB Rflx Negative (Negative)
[2021-05-18 13:17] LABS: Lyme Ab IgG w/WB Rflx Negative (Negative)
[2021-05-18 13:22] LABS: Adenovirus PCR Not Detected (NotDetected); Bordetella parapertussis PCR Not Detected (NotDetected); Bordetella pertussis PCR Not Detected (NotDetected); Chlamydia pneumoniae PCR Not Detected (NotDetected); Coronavirus 229E PCR Not Detected (NotDetected); Coronavirus CoV-2 (COVID19)PCR Not Detected (NotDetected); Coronavirus HKU1 PCR Not Detected (NotDetected); Coronavirus NL63 PCR Not Detected (NotDetected); Coronavirus OC43PCR Not Detected (NotDetected); Human Metapneumovirus PCR Not Detected (NotDetected); Influenza A PCR Not Detected (NotDetected); Influenza B PCR Not Detected (NotDetected); Mycoplasma pneumoniae PCR Not Detected (NotDetected); Parainfluenza Virus 1 PCR Not Detected (NotDetected); Parainfluenza Virus 2 PCR Not Detected (NotDetected); Parainfluenza Virus 3 PCR Not Detected (NotDetected); Parainfluenza Virus 4 PCR Not Detected (NotDetected); Respiratory Syncytial VirusPCR Not Detected (NotDetected); Rhinovirus/Enterovirus PCR Not Detected (NotDetected)
--- NOTE | 2021-05-18 13:42 | Hospitalist Progress Note ---
Date of Service May 18, 2021 Assessment & Plan (1) Fever of unknown origin: Plan: - fever x 4-5 weeks at this point - presented to the ED with temp 102 along with leukocytosis with left shift and mild tachycardia - procal. elevated at 3.7 - ESR and CRP elevated: 59/23.6 - Positive covid 05/11 but repeat done 05/18 now negative - CT of the neck initially done 05/14 showing myositis of the left SCM but repeat CT showing his is improved - CXR: interstitial thickening which could reflect infectious process but patient without cough/SOB or respiratory symptoms - CT A/P showing distended GB without evidence of ductal dilation or acute cholecystitis - RUQ U/S showing GB wall thickening without ductal dilation or acute cholecystitis. Patient denies abd pain, N/V - MR venogram of the neck done (given neck pain) and unremarkable - Negative Kernig's and Brudzinski sign. No clinical evidence to suggest meningeal irritation - Could be [id number]-[id number] infections-- covid upfront and given immunocompromised state from covid, developed secondary infection. Only symptoms at present are severe fatigue/RABAGO/neck pain and fever - LFT's are abnormal--> exact etiology unclear - ordered and pending: -monospot -EBV -biofire -anaplasma and babesiosis PCR (smears negative) -Acute hepatitis panel -Lyme titer -Parvovirus -ASO - Continue empiric antibiotic therapy with cefepime/doxycycline. No need for continued vancomycin (as doxy covers community-acquired MRSA) - Continue to follow clinically (2) Leukocytosis: Plan: - could be steroid induced vs infectious-- see above (3) COVID-19 virus infection: Plan: - I am not highly suspicious that what were dealing with now is post Covid or Covid related. Although patient did test positive for Covid on 05/11, he was symptomatic for 3 weeks prior. His symptoms have been ongoing and his repeat Covid is negative - I suspect that he did have Covid and subsequently developed a secondary infection of some sort (that has yet to be identified) which is now it is causing his symptoms (4) Hyperbilirubinemia: Plan: - Exact etiology unclear - In talking with the patient, he was not taking a significant amount of Tyleno l/alcohol prior to arrival - Labs orderedas outlined above - Salicylate and acetaminophen level added along with a serum alcohol level - Right upper quadrant ultrasound shows distended gallbladder without pericholecystic fluid and a negative Gutierrez sign. In the absence of abdominal pain, nausea and vomiting I find it hard to believe that this is contributing to his symptomatology although he could be developing a calculus cholecystitis - Avoid hepatotoxic meds (ie- APAP, okay for ibuprofen for fever/RABAGO/Pain) - GI on boardappreciate recommendations - Continue to follow and trend labs Admission and Anticipated Discharge Date Admission Date: May 18, 2021 Subjective Patient seen on daily rounds today. Admitted with fever (unknown etiology), elevated bilirubin and leukocytosis. Pt was seen in the ED 05/11 where he was c/o RABAGO, fever and bodyaches x3 weeks at that time. Tested positive for covid at the time and discharged on tapering course of prednisone. Symptoms ongoing and the then developed left sided neck pain prompting him to come back to the ED on 05/14. He had a soft tissue CT of the neck that showed myositis of the SCM muscle. ESR: 59/CRP: 23.9. He was D/C'ed with an Rx for augmentin and told to take APAP. Back to the ED on 05/17 with persistent symptoms (fever now ongoing for 1 month). WBC count 20K with a left shift. Procalcitonin elevated at 3.7. Total bilirubin found to be elevated at 4.9. AST normal at 34. ALT slightly elevated at 79. CT A/P showing GB wall thickening without ductal dilation. RUQ U/S showing GB wall thickening without pericholecystic fluid and negative Gutierrez's sign. CXR showing interstitial thickening which could reflect infectious process. Repeat CT of the soft tissue of the neck showing near resolution of the myositis. Repeat Covid test is negative. Hospitalized and placed on Vanco/Doxy and Cefepime. His complaints today are neck pain, RABAGO, eye pain, and fever. Overall, just feels "ill". No rash. Multiple tick bites in the past. Is often outdoors. Review of Systems Review of Systems: All systems reviewed and are unremarkable except as noted in HPI and below Denies nasal congestion, sore throat, cough, chest pain, shortness of breath, palpitations, orthopnea, PND, abdominal pain, nausea, vomiting, diarrhea, constipation, dysuria, hematuria, frequency, back pain, joint pain or swelling, easy bruising or bleeding, skin lesions or rashes. Physical Exam Physical Exam: General: Resting comfortably in his hospital chair. Appears mildly ill but not toxic. NAD. HEENT: Head is AT/NC buccal mucosa is moist and pink. Mild sclera icterus. petechiae on the soft palate. No exudates. + ACC/PCC adenopathy Neck: No JVD. Negative hepatojugular reflex Cardiac: RRR without M/G/R Lungs: CTA without W/R/R. Negative egophony Abdomen: Normoactive X4. Soft and nontender in all quadrants. Negative RUQ tenderness. Negative Gutierrez's sign Extremities: No peripheral clubbing cyanosis or edema Neuro: A&O X4 cranial nerves II through XII are grossly intact no focal neuro deficits. Negative Kernig's and Brudzinski sign Skin: No obvious skin lesions or rashes. No significant jaundice appreciated Psych: Appropriate affect pleasant and cooperative Results & Data Results & Data ([facility] [place]) Vital Signs (Past 12 Hours) Vital Signs Temp Pulse Pulse Resp BP Pulse Ox 05/18/21 07:06 36.9 C 92 H 16 114/78 96 05/18/21 03:30 36.6 C 88 18 111/70 95 05/18/21 02:40 92 H 95 05/18/21 02:30 91 H 22 96 05/18/21 02:20 93 H 26 H 93 05/18/21 02:10 97 H 24 94 05/18/21 02:00 95 H 31 H 93 05/18/21 01:50 95 H 28 H 93 05/18/21 01:40 102 H 24 94 Laboratory Results 05/18/21 05:23 05/18/21 05:23 PG Care Time/CCT Total # of Minutes Spent Total Time Spent with Patient: Total time spent is greater than 50% in coordination of care (as documented) at patient's floor/unit and/or counseling patient: Coding Level of Care Code 50729 Subseq Hosp Care Lvl 3 Diagnoses Fever of unknown origin R50.9 Leukocytosis D72.829 COVID-19 virus infection U07.1 Hyperbilirubinemia E80.6
[2021-05-18] MEDS ORDERED: VANCOMYCIN HCL 1,500 MG in SODIUM CHLORIDE 0.9% 500 ML IV SCH (14:00)
[2021-05-18] MEDS ORDERED: KETOROLAC 30 MG/ML VIAL IV ONE (14:46)
[2021-05-18] MEDS: IBUPROFEN 600 MG TAB PO PRN (17:41)
[2021-05-18] MEDS: CEFEPIME 2,000 MG in SYRINGE 0 ML IV SCH ×2 (17:42→23:24)
[2021-05-18 20:16] LABS: Hepatitis C IgG 13Yrs+Old_Rflx Neg (Neg)
[2021-05-18 20:59] LABS: Hepatitis B Surf Ag Rflx Conf Neg (Neg)
[2021-05-19] MEDS: IBUPROFEN 600 MG TAB PO PRN ×4 (03:03→19:46)
[2021-05-19 03:29] LABS: Hepatitis A Antibody IgM NON-REACTIVE (NON-REACTIVE); Hepatitis B Core Antibody IgM NON-REACTIVE (NON-REACTIVE)
[2021-05-19] MEDS: DOXYCYCLINE HYCLATE 100 MG in DEXTROSE 5% 100 ML IV SCH ×2 (04:54→16:32)
[2021-05-19 05:51] LABS: Basophils # (auto) 0.02 K/uL (0-0.2); Basophils % (auto) 0.1 %; Eosinophils # (auto) 0.35 K/uL (0-0.5); Eosinophils % (auto) 1.9 %; Hematocrit (blood only) 37.5 % (42-52); Hemoglobin 12.8 g/dL (14.0-18.0); Immature Granulocytes # (auto) 0.27 K/uL (0.00-0.02); Immature Granulocytes % (auto) 1.4 %; Lymphocytes # (auto) 0.73 K/uL (1.2-3.4); Lymphocytes % (auto) 3.9 %; Mean Corpuscular Hemoglobin 30.7 pg (25-34); Mean Corpuscular Hgb Conc 34.1 g/dL (32-36); Mean Corpuscular Volume 89.9 fL (80-100); Mean Platelet Volume 10.2 fL (7.4-10.4); Monocytes # (auto) 0.73 K/uL (0.11-0.59); Monocytes % (auto) 3.9 %; Neutrophils # (auto) 16.58 K/uL (1.4-6.5); Neutrophils % (auto) 88.8 %; Platelet Count 206 K/uL (130-400); RDW Coefficient of Variation 14.3 % (11.5-14.5); RDW Standard Deviation 47.4 fL (36.4-46.3); Red Blood Count 4.17 M/uL (4.7-6.1); White Blood Count 18.68 K/uL (4.8-10.8)
[2021-05-19 06:01] LABS: Prothrombin Time 10.4 Seconds (9.0-12.0)
[2021-05-19 06:26] LABS: Albumin Level 1.6 gm/dl (3.4-5.0); BUN Creatinine Ratio 18.7 (10-20); Bilirubin Direct 1.9 mg/dl (0-0.2); Calcium 8.3 mg/dl (8.5-10.1); Creatinine Clr Calc Pharmacy 102.5 ml/min; Est GFR (African American) 83.1 ml/min; Est GFR (Non-African American) 71.7 ml/min; Potassium 3.3 mmol/L (3.5-5.1)
[2021-05-19 06:27] LABS: Albumin Globulin Ratio 0.4 (0.9-2); Bilirubin,Total 2.5 mg/dl (0.2-1); Globulin 4.3 gm/dl (2.5-4.0); Total Protein 5.9 gm/dl (6.4-8.2)
[2021-05-19] MEDS: CEFEPIME 2,000 MG in SYRINGE 0 ML IV SCH (07:35)
[2021-05-19] MEDS: ENOXAPARIN INJ 40 MG/0.4 ML SYR SQ SCH (07:36)
--- NOTE | 2021-05-19 09:52 | Communication Note ---
Date of Service: May 19, 2021 36 year old male admitted w/ febrile illness, recent COVID infection + monoscreen GI following for elevated LFTs continue to downtrend TB 2.5 AST 26, ALT 60, ALK 285. Would continue to trend LFTs. No GI contraindication to diet. Recall GI PRN. Would suspect LFTs to continue to improve over the next 2/3 weeks.
[2021-05-19] MEDS ORDERED: POTASSIUM CHLORIDE CRTAB 20 MEQ TABCR PO STA ×2 (11:06→11:51)
[2021-05-19 13:35] LABS: CMV IgG Antibody >10.00 U/mL; CMV IgM Antibody <30.00 AU/mL; Epstein Barr Virus Early Ag Ab <9.00 U/mL
--- NOTE | 2021-05-19 16:30 | Hospitalist Progress Note ---
Date of Service May 19, 2021 Assessment & Plan (1) Fever of unknown origin: Plan: - fever x 4-5 weeks at this point - presented to the ED with temp 102 along with leukocytosis with left shift and mild tachycardia - procal. elevated at 3.7 - ESR and CRP elevated: 59/23.6 - Positive covid 05/11 (3 weeks after symptoms onset) but repeat done 05/18 and 05/19 and both negative. Okay to remove from isolation precautions (D/W Jacquelin Hector) - CT of the neck initially done 05/14 showing myositis of the left SCM but repeat CT showing his is improved - CXR: interstitial thickening which could reflect infectious process but patient without cough/SOB or respiratory symptoms - CT A/P showing distended GB without evidence of ductal dilation or acute cholecystitis - RUQ U/S showing GB wall thickening without ductal dilation or acute cholecystitis. Patient denies abd pain, N/V - MR venogram of the neck done (given neck pain) and unremarkable - Negative Kernig's and Brudzinski sign. No clinical evidence to suggest meningeal irritation - Monospot has since come back positive. Does have mild splenomegaly on CT - Suspect that this Could be [id number] infections-- covid upfront and given immunocompromised state from covid, developed secondary infection (mono). Can not rule out associated bacterial infection as well (as procal mildly elevated) - LFT's are abnormal-->suspect secondary to acute mononucleosis (downtrending) - ordered and pending: -monospot: + -EBV- pending -Pertussis: Negative -Adenovirus: Negative -C.pneumoniae: Negative -Parainfluenza: Negative -Parvovirus: Negative -RSV: Negative -anaplasma and babesiosis PCR (smears negative) -Acute hepatitis panel: pending -Lyme titer- IgM/IgG both negative -ASO- negative - Patient was started on empiric antibiotic therapy and remains on ce fepime/doxycycline. At this time, I believe this is all viral; however, cannot rule out a mild secondary bacterial infection (does have opacities seen on imaging with a mildly elevated procalcitonin). At this time, DC cefepime and continue doxycycline. This will provide adequate atypical coverage in addition to coverage for anaplasmosis while PCR pending. - If continued improvement noted, likely will be able to discharge tomorrow (2) Mononucleosis: Plan: -Suspect this is likely the cause of ongoing symptoms and hyperbilirubinemia which now seems to be downtrending -Continue with supportive care -Mild splenomegaly seen on imaging. 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 In addition, even sudden stopping while wearing a seatbelt can cause injury/splenic rupture. This is a risk over the next 6 to 8 weeks (3) Leukocytosis: Plan: - could be steroid induced vs infectious-- see above (4) COVID-19 virus infection: Plan: -Symptom onset beginning to mid April with positive test on 05/11. Unfortunately, symptoms never resolved as he now has [id number]-ah-[id number] viral infections (now with acute mononucleosis) -Has had multiple negative Covid tests (most recently on 05/18 and today on 05/19). Did discuss this with Jeannette Beltrán who agrees that patient can be taken out of isolation precautions - (5) Hyperbilirubinemia: Plan: -Likely a result of mononucleosis - In talking with the patient, he was not taking a significant amount of Tylenol/alcohol prior to arrival - Labs orderedas outlined above - Salicylate: Negative - Acetaminophen level pending - Right upper quadrant ultrasound shows distended gallbladder without pericholecystic fluid and a negative Gutierrez sign. In the absence of abdominal pain, nausea and vomiting I find it hard to believe that this is contributing to his symptomatology although he could be developing a calculus cholecystitis - Avoid hepatotoxic meds (ie- APAP, okay for ibuprofen for fever/RABAGO/Pain) - GI on boardappreciate recommendations - Continue to follow and trend labs Plan: Continue with supportive care If labs continue to improve and patient's feeling well, plan for likely discharge tomorrow Admission and Anticipated Discharge Date Admission Date: May 18, 2021 Subjective Patient seen on daily rounds today. Overall reports that he feels "80% better". Still having mild headaches off and on but nothing compared to yesterday. Reports that his "eyes no longer hurt". Denies fevers, chills, chest pain, shortness of breath, abdominal pain, nausea, vomiting, diarrhea, constipation. Nursing voices no complaints or concerns. Review of Systems Review of Systems: All systems reviewed and are unremarkable except as noted in HPI and below Denies fevers, chills, nasal congestion, sore throat, cough, chest pain, shortness of breath, palpitations, orthopnea, PND, abdominal pain, nausea, vomiting, diarrhea, constipation, dysuria, hematuria, frequency, back pain, joint pain or swelling, easy bruising or bleeding, skin lesions or rashes. Physical Exam Physical Exam: General: Resting comfortably in his hospital bed. Does not appear ill or toxic today. No longer flushed in appearance NAD. HEENT: Head is AT/NC buccal mucosa is moist and pink Neck: No JVD. Negative hepatojugular reflex Cardiac: RRR without M/G/R Lungs: CTA without W/R/R Abdomen: Normoactive X4. Soft and nontender in all quadrants. Extremities: No peripheral clubbing cyanosis or edema Neuro: A&O X4 cranial nerves II through XII are grossly intact no focal neuro deficits Skin: No obvious skin lesions or rashes Psych: Appropriate affect pleasant and cooperative Results & Data Results & Data ([facility]) Vital Signs (Past 12 Hours) Vital Signs Temp Pulse Resp BP Pulse Ox 05/19/21 07:44 36.8 C 83 18 108/71 95 Laboratory Results 05/19/21 05:22 05/19/21 05:22 Total bilirubin downtrendin.5 AST: 26 AST: 60 Alk phos: 285 PG Care Time/CCT Total # of Minutes Spent Total Time Spent with Patient: Total time spent is greater than 50% in coordination of care (as documented) at patient's floor/unit and/or counseling patient: Coding Level of Care Code 05083 Subseq Hosp Care Lvl 3 Diagnoses Fever of unknown origin R50.9 Leukocytosis D72.829 COVID-19 virus infection U07.1 Hyperbilirubinemia E80.6 Mononucleosis B27.90
[2021-05-20 00:52] LABS: Parvovirus IgG 0.3 (<0.9); Parvovirus IgM 0.1 (<0.9)
[2021-05-20] MEDS ORDERED: KETOROLAC TROMETHAMINE 15 MG/ML VIAL IV ONE (05:17)
[2021-05-20 05:35] LABS: Basophils # (auto) 0.04 K/uL (0-0.2); Basophils % (auto) 0.2 %; Eosinophils # (auto) 0.37 K/uL (0-0.5); Eosinophils % (auto) 2.2 %; Hematocrit (blood only) 41.3 % (42-52); Hemoglobin 13.7 g/dL (14.0-18.0); Immature Granulocytes # (auto) 0.72 K/uL (0.00-0.02); Immature Granulocytes % (auto) 4.2 %; Lymphocytes # (auto) 1.03 K/uL (1.2-3.4); Mean Corpuscular Hgb Conc 33.2 g/dL (32-36); Mean Corpuscular Volume 90.6 fL (80-100); Mean Platelet Volume 10.1 fL (7.4-10.4); Neutrophils % (auto) 80.4 %; Platelet Count 266 K/uL (130-400); RDW Coefficient of Variation 14.5 % (11.5-14.5); Red Blood Count 4.56 M/uL (4.7-6.1); White Blood Count 17.16 K/uL (4.8-10.8)
[2021-05-20 05:53] LABS: Albumin Level 1.8 gm/dl (3.4-5.0); BUN Creatinine Ratio 15.3 (10-20); Calcium 8.5 mg/dl (8.5-10.1); Creatinine Clr Calc Pharmacy 113.2 ml/min; Est GFR (African American) 93.7 ml/min; Est GFR (Non-African American) 80.8 ml/min; Magnesium 2.2 mg/dl (1.8-2.4); Potassium 3.5 mmol/L (3.5-5.1)
[2021-05-20 05:56] LABS: Albumin Globulin Ratio 0.4 (0.9-2); Bilirubin,Total 2.5 mg/dl (0.2-1); Globulin 4.7 gm/dl (2.5-4.0); Total Protein 6.5 gm/dl (6.4-8.2)
[2021-05-20] MEDS ORDERED: KETOROLAC 30 MG/ML VIAL IV ONE (09:24)
[2021-05-20] MEDS ORDERED: KETOROLAC 30 MG/ML VIAL IV PRN ×2 (09:51→10:28)
[2021-05-20] MEDS ORDERED: VANCOMYCIN HCL 2,000 MG in SODIUM CHLORIDE 0.9% 250 ML IV STA (10:14)
[2021-05-20] MEDS ORDERED: VANCOMYCIN CONSULT ACTIVE PRN (10:14)
[2021-05-20 10:24] LABS: C Reactive Protein 14.4 mg/dl (0-0.29)
[2021-05-20] MEDS: ENOXAPARIN INJ 40 MG/0.4 ML SYR SQ SCH (10:30)
[2021-05-20] MEDS ORDERED: VANCOMYCIN HCL 2,500 MG in SODIUM CHLORIDE 0.9% 500 ML IV ONE (10:45)
[2021-05-20] MEDS ORDERED: dexAMETHasone 10 MG in SYRINGE 0 ML IV ONE (10:45)
[2021-05-20] MEDS: prednisoLONE acetate 1% OP SUSP 5 ML BTL OPB SCH ×4 (11:08→22:41)
[2021-05-20 12:26] LABS: Methyl Alcohol Comment WHOLE BLOOD; Methyl Alcohol Level NONE DETECTED (NONE DETECTED)
--- NOTE | 2021-05-20 12:47 | Hospitalist Progress Note ---
Date of Service May 20, 2021 Assessment & Plan (1) Fever of unknown origin: Plan: - fever x 4-5 weeks at this point - presented to the ED with temp 102 along with leukocytosis with left shift and mild tachycardia - procal. elevated at 3.7 - ESR and CRP elevated (05/18): 122/24.6 - Positive covid 05/11 (3 weeks after symptoms onset) but repeat done 05/18 and 05/19 and both negative. Since, has been removed from isolation precautions (D/W Jacquelin Hector) - CT of the neck initially done 05/14 showing myositis of the left SCM (CK was mildly elevated at 337) but repeat CT showing his is improved - CXR: interstitial thickening which could reflect infectious process but patient without cough/SOB or respiratory symptoms - CT A/P showing distended GB without evidence of ductal dilation or acute cholecystitis - RUQ U/S showing GB wall thickening without ductal dilation or acute cholecystitis. Patient denies abd pain, N/V - MR venogram of the neck done (given neck pain) and unremarkable - Negative Kernig's and Brudzinski sign. - Monospot has since come back positive. Does have mild splenomegaly on CT - Suspect that this Could be [id number] infections-- covid upfront and given immunocompromised state from covid, developed secondary infection (mono). Can not rule out associated bacterial infection as well (as procal mildly elevated) - LFT's are abnormal-->TB has downtrended from 4.8 to 2.5 but remaining stable at 2.5. His AST and ALT were normal and now seem to be uptrending (58/83) - ordered and pending: -monospot: + -EBV- pending -Pertussis: Negative -Adenovirus: Negative -C.pneumoniae: Negative -Parainfluenza: Negative -Parvovirus: Negative -RSV: Negative -anaplasma and babesiosis PCR (smears negative) -Acute hepatitis panel: pending -Lyme titer- IgM/IgG both negative -ASO- negative -CMG IgM negative. IgG positive indicating an old infection - Patient was started on empiric antibiotic therapy cefepime/doxycycline-- this was de-escalated to doxy on 05/19 (as it was thought that this would provide adequate atypical coverage for community-acquired pneumonia if he did it for sec ondary bacterial infection but more so provide coverage for anaplasmosis while his PCR was pending) -With reexamination on 05/20: Patient symptoms have progressively worsened. His major complaint is a severe headache and eye pain bilaterally. He is not having visual disturbances. He has since defervesced. Clinically, he has significant injection of the bilateral eyes and this seems to correlate with likely bilateral uveitis. I am still unable to pinpoint the etiology of his headache/neck pain. His Kernig's and Brudzinski's remain negative; however, I feel that a lumbar puncture is warranted at this time. -Will obtain an MRI of the brain with and without contrast -will proceed with a lumbar puncture for cerebrospinal fluid analysis -will transition his antibiotic regimen to Rocephin/vancomycin as these cross the blood-brain barrier until bacterial meningitis can be ruled out -will repeat inflammatory markers -Obtain an MRCP given his uptrending AST/ALT -At this point, I have reached out to neurology (patient regarding my concern for possible meningitis/viral encephalitis), ophthalmology (regarding concern for uveitis), interventional radiology (regarding the lumbar puncture), and rheumatology (as I am uncertain if this is infectious or perhap inflammatory issues given the fact that he is post Covid and with active mono) -Neurology does not believe that a formal consult is necessary but agrees with the MRI of the brain and proceeding with a lumbar puncture. Dr. Olmstead believes that this very well could be a post Covid/mono viral encephalitis or even viral meningitis -Ophthalmology (Dr. Chaney) agrees that this sounds like Uveitis and that this can follow some viral infections so can likely follow Covid. He is recommending topical Prednisolone 1% 1gtt bilaterally -Rheumatology (Dr. Gonzalez)-- as I am not positive that this is an infectious etiology or perhaps inflammatory issue post covid/mono. Rheumatology feels that this very well may be the case. Of course makes sense to rule out infectious etiology but will start IV Decadron -In addition, case discussed with attending (Dr. Rivas) who also evaluated the patient and is ordering a CT angiogram of the neck/chest for concern of giant cell arteritis -at this time, uncertain is this is an infectious process (other than recent covid and then mono) or is this is perhaps viral encephalitis/systemic infl ammatory responsepost covid and mono. Patient may even have an underlying inflammatory condition that is now unravelling since having covid (2) Uveitis: Plan: - see above -Prednisolone ophthalmic solution as recommended by ophthalmology (3) Mononucleosis: Plan: -Was thought to be the cause of his hyperbilirubinemia and mild splenomegaly seen on imaging -Continue with supportive care -Mild splenomegaly seen on imaging. 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 In addition, even sudden stopping while wearing a seatbelt can cause injury/splenic rupture. This is a risk over the next 6 to 8 weeks (4) Leukocytosis: Plan: -Was initially thought to be steroid-induced; however, patient has been off of steroids since admission. -I believe this could be infectious versus inflammatory in naturesee above (5) COVID-19 virus infection: Plan: -Symptom onset beginning to mid April with positive test on 05/11. Unfortunately, symptoms never resolved as he now has [id number] viral infections (now with acute mononucleosis) -Has had multiple negative Covid tests (most recently on 05/18 and today on 05/19). Did discuss this with Jeannette Beltrán who agrees that patient can be taken out of isolation precautions (6) Hyperbilirubinemia: Plan: -Likely a result of mononucleosis - In talking with the patient, he was not taking a significant amount of Tylenol/alcohol prior to arrival - Labs orderedas outlined above - Salicylate: Negative - Acetaminophen level pending - Right upper quadrant ultrasound shows distended gallbladder without pericholecystic fluid and a negative Gutierrez sign. In the absence of abdominal pain, nausea and vomiting I find it hard to believe that this is contributing to his symptomatology although he could be developing a calculus cholecystitis - Since now with uptrending AST/ALT: I have ordered an MRCP - Avoid hepatotoxic meds (ie- APAP, okay for ibuprofen for fever/RABAGO/Pain) - GI on boardappreciate recommendations - Continue to follow and trend labs Admission and Anticipated Discharge Date Admission Date: May 18, 2021 Subjective Patient seen on daily rounds today. Started experiencing a severe RABAGO lastnight that has progressed in the overnight hours. Received ibuprofen and oxycodone that provided no relief. Pain intense and progressive during the overnight hours and into this morning that he "feels like he is going to ". He reports that his neck is exquisitely painful and and now his eyes are severely painful and red. He is not having any visual disturbances. No light sensitivity. No floaters. Has not had any fevers. Is nauseated intermittently but feels it is related to his headache. Review of Systems Review of Systems: All systems reviewed and are unremarkable except as noted in HPI and below Denies fevers, chills, nasal congestion, sore throat, cough, chest pain, shortness of breath, palpitations, orthopnea, PND, abdominal pain, nausea, vomiting, diarrhea, constipation, dysuria, hematuria, frequency, back pain, alvaro nt pain or swelling, easy bruising or bleeding, skin lesions or rashes. Physical Exam Physical Exam: General: Resting comfortably in his hospital bed. Appears very uncomfortable. He is holding his head. He does not appear toxic. HEENT: Bilateral eyes are extremely injected. Visual acuity is grossly intact. TM's dumont with hyperemia. Head is AT/NC Neck: No JVD. Negative hepatojugular reflex Cardiac: RRR without M/G/R Lungs: CTA without W/R/R Abdomen: Normoactive X4. Soft and nontender in all quadrants. Extremities: No peripheral clubbing cyanosis or edema Neuro: A&O X4 cranial nerves II through XII are grossly intact no focal neuro deficits. Negative Kernig's sign. Negative Brudzinski sign. Patient is not confused. Skin: No obvious skin lesions or rashes Psych: Appropriate affect pleasant and cooperative Results & Data Results & Data ([facility]) Vital Signs (Past 12 Hours) Vital Signs Temp Pulse Resp BP Pulse Ox 05/20/21 07:03 37 C 80 16 138/74 96 Laboratory Results 05/20/21 05:17 05/20/21 05:17 PG Care Time/CCT Total # of Minutes Spent Total Time Spent with Patient: Total time spent is greater than 50% in coordination of care (as documented) at patient's floor/unit and/or counseling patient: Prolonged Care Time 90 min including: Multiple follow-up visits today and updating of patient his . Also, case discussed with rheumatology (Dr. Gonzalez), ophthalmology (Dr. Chaney), neurology (Dr. Olmstead), and attending provider (Dr. Rivas). Plan is to also consult infectious disease Coding Level of Care Code 67721 Subseq Hosp Care Lvl 3 Diagnoses Fever of unknown origin R50.9 Mononucleosis B27.90 Leukocytosis D72.829 COVID-19 virus infection U07.1 Hyperbilirubinemia E80.6 Uveitis H20.9
[2021-05-20] MEDS ORDERED: GADOBUTROL 65ML VIAL IV ONE (13:07)
--- NOTE | 2021-05-20 13:26 | Fluoroscopy Report ---
FLUOROSCOPIC GUIDED LUMBAR PUNCTURE CLINICAL HISTORY: Headache and fever. PROCEDURE: The risks, benefits, and alternatives to the procedure is discussed with the patient who v oiced understanding. Written informed consent was obtained. The patient was placed prone on the fluor oscopy table. The lower back was prepped and draped in the usual sterile fashion. 1% lidocaine was us ed for local anesthesia. A 20-gauge spinal needle was inserted into the L3-L4 interlaminar space, and approximately 10 cc of clear colorless cerebrospinal fluid was removed. A single spot image was save d. The patient tolerated the procedure well. There were no immediate complications. The patient was t hen returned to the medical floor for further observation. Fluoroscopy time: 0.2 minutes IMPRESSION: Fluoroscopic guided lumbar puncture with removal of approximately 10 cc of cerebrospinal fluid. There were no immediate complications. ACT 112: Negative or not required by law. Electronically signed by: Carson Flower M.D. 05/20/2021 1:24 PM
--- NOTE | 2021-05-20 13:27 | Magnetic Resonance Report ---
MR brain wo/w con CLINICAL HISTORY: herrera/neck pain TECHNIQUE: Multiplanar and multisequence MR images of the brain were obtained prior to and following administration of gadolinium contrast. Comparison: Comparison is made to MR venogram head 05/18/2021 FINDINGS: No abnormal restricted diffusion is identified. The white matter is unremarkable. The ventricular sys tem is normal in appearance. There is no evidence of acute intraparenchymal hemorrhage. No extra axia l fluid collections are seen. There are no masses, mass effect, or midline shift. No abnormal enhance ment is seen. The corpus callosum, pituitary gland, and cerebellar tonsils appear grossly unremarkab le. Flow voids of the major intracranial arterial vessels are identified. The imaged portions of the para nasal sinuses, mastoid air cells, and orbits are unremarkable. IMPRESSION: No acute abnormalities. ACT 112: Negative or not required by law. Electronically signed by: Sean Cortes M.D. 05/20/2021 1:25 PM
[2021-05-20 13:40] LABS: Total Protein CSF 84.1 mg/dl (15-45)
[2021-05-20 13:40] LABS: Babesia microti DNA Not Detected (Not Detected)
--- NOTE | 2021-05-20 13:43 | Magnetic Resonance Report ---
MRCP CLINICAL HISTORY: Abnormal LFTs. Fever. Covid. TECHNIQUE: Utilizing a 1.5 Silke magnet and dedicated coil, multiplanar, multiecho imaging of the [facility] er abdomen was performed utilizing heavily T2 weighted pulsing sequences without IV contrast. COMPARISON STUDY: CT of the abdomen and pelvis and right upper quadrant ultrasound April 16, 2021. FINDINGS: There is no intra or extrahepatic biliary ductal dilatation. Sensitivity for detection of c ommon bile duct calculi is diminished on this exam given motion artifact on the 3D MRCP sequence but none are identified. No hepatic lesions are identified on this unenhanced exam. There is mild hepatos plenomegaly. No pancreatic ductal dilatation is present. The course and caliber of the main pancreati c duct is normal. There is no peripancreatic infiltration or fluid. Unenhanced images of the adrenal glands and kidneys are normal. There is no hydronephrosis. Caliber of visualized small and large loli l are normal. There is no abdominal lymphadenopathy or ascites. There is no pericholecystic fluid. Th ere are trace bilateral pleural effusions. IMPRESSION: 1. No biliary ductal dilatation. Decreased sensitivity for detection of common bile duct calculi but none identified. 2. Mild hepatosplenomegaly. 3. No evidence for acute cholecystitis. 4. Trace bilateral pleural effusions. ACT 112: Negative or not required by law. Electronically signed by: Blair Wolf M.D. 05/20/2021 1:41 PM
[2021-05-20 13:48] LABS: Appearance CSF Clear; CSF Count Tube # 3; Color CSF Pale Yellow
[2021-05-20 13:49] LABS: CSF Xanthrochromic Xanthochromic; Red Blood Cell CSF (A) 0 /uL (0-); Red Blood Cell CSF (B) 0 /uL (0-); White Blood Cell CSF (A) 10 /uL (0-5); White Blood Cell CSF (B) 10 /uL (0-5)
[2021-05-20] MEDS: cefTRIAXone SODIUM 2,000 MG in DEXTROSE 5% 50 ML IV SCH ×2 (13:59→22:41)
[2021-05-20] MEDS ORDERED: SODIUM CHLORIDE 0.9% 500 ML IV SCH (14:15)
--- NOTE | 2021-05-20 15:20 | Pharmacy Report ---
Pharmacy Abx Dose Short Note - Date of Service May 20, 2021 - Assessment & Plan Assessment 36 year old M ordered vancomycin and ceftriaxone for empiric coverage of possible bacterial meningitis Previously on cefepime + doxycycline with worsening symptoms Lumbar puncture performed Plan Vancomycin * Loading dose: 2500 mg IV * Maintenance dose: 1750 mg (~16 mg/kg) IV every 12 hours * This dose is predicted to achieve AUC 400 - 600 * Plan to order trough level on 05/22 Ceftriaxone 2g IV q12h Pharmacy will continue to follow and will adjust dose/frequency as necessary. Thank you.
[2021-05-20] MEDS ORDERED: OPTIRAY 320 125ml IV ONE (17:21)
--- NOTE | 2021-05-20 17:37 | CT Scan Report ---
CT ANGIOGRAPHY OF THE NECK WITH CONTRAST CLINICAL HISTORY: large vessel vasculitis? COMPARISON STUDY: CT of the neck May 17, 2021. Technique: CT angiography of the carotid and vertebral arteries was obtained using Optiray and 3D rec onstruction on an independent workstation. NASCET criteria was utilized. Automated exposure control was utilized for the study. A dose lowering technique was utilized adhering to the principles of ALA RA. CT DOSE: 1387.20 mGy.cm Findings: Chest CT will be reported separately. There is no cervical lymphadenopathy. No fluid collec tion to suggest abscess within the neck is noted. Parotid and submandibular glands are normal. Major vasculature of the neck is patent. No dissection or stenosis is identified within the bilateral commo n carotid, cervical internal carotid or vertebral arteries. No vessel wall thickening is identified t o suggest vasculitis by CT. There is no vessel irregularity. Visualized portions of the intracranial contents are unremarkable. IMPRESSION: Unremarkable CTA of the neck. ACT 112: Negative or not required by law. Electronically signed by: Blair Wolf M.D. 05/20/2021 5:35 PM
--- NOTE | 2021-05-20 17:42 | CT Scan Report ---
CT ANGIOGRAPHY OF THE CHEST CLINICAL HISTORY: large vessel vasculitis? COMPARISON STUDY: Chest radiograph May 17, 2021. TECHNIQUE: Helical axial images of the chest were obtained during arterial phase following intravenou s injection 120 cc Optiray 320 IV. Sagittal and coronal reconstructions were viewed. Automated exposu re control was utilized for the study. A dose lowering technique was utilized adhering to the princi ples of ALARA. FINDINGS: Caliber of the thoracic aorta is normal. No wall thickening or vessel irregularity is noted . There is no thoracic aortic dissection. There is no CT evidence for vasculitis of the thoracic aort a or visualized portions of the brachycephalic trunk, left common carotid or left subclavian arteries . Borderline cardiomegaly is noted. Central airways are patent. There is no pericardial effusion. The re are small bilateral pleural effusions. Associated airspace opacities favor atelectasis. There is n o consolidation to suggest pneumonia. No acute fracture or suspicious lesion is identified within vis ualized portions of the bony thorax. There is mild splenomegaly. IMPRESSION: 1. Normal CT appearance of the thoracic aorta. No evidence for vasculitis. 2. Trace bilateral pleural effusions. 3. Borderline cardiomegaly. ACT 112: Negative or not required by law. Electronically signed by: Blair Wolf M.D. 05/20/2021 5:40 PM
[2021-05-21] MEDS: VANCOMYCIN HCL 1,750 MG in SODIUM CHLORIDE 0.9% 500 ML IV SCH ×2 (01:50→14:15)
[2021-05-21] MEDS: prednisoLONE acetate 1% OP SUSP 5 ML BTL OPB SCH ×4 (01:50→14:24)
[2021-05-21 05:38] LABS: Basophils # (auto) 0.02 K/uL (0-0.2); Basophils % (auto) 0.1 %; Eosinophils # (auto) 0.06 K/uL (0-0.5); Eosinophils % (auto) 0.4 %; Hematocrit (blood only) 37.1 % (42-52); Hemoglobin 12.1 g/dL (14.0-18.0); Immature Granulocytes # (auto) 0.63 K/uL (0.00-0.02); Immature Granulocytes % (auto) 4.5 %; Lymphocytes % (auto) 8.6 %; Mean Corpuscular Hemoglobin 29.9 pg (25-34); Mean Corpuscular Hgb Conc 32.6 g/dL (32-36); Mean Corpuscular Volume 91.6 fL (80-100); Mean Platelet Volume 9.6 fL (7.4-10.4); Monocytes % (auto) 7.2 %; Neutrophils # (auto) 11.03 K/uL (1.4-6.5); Neutrophils % (auto) 79.2 %; Platelet Count 261 K/uL (130-400); RDW Coefficient of Variation 14.5 % (11.5-14.5); RDW Standard Deviation 48.6 fL (36.4-46.3); Red Blood Count 4.05 M/uL (4.7-6.1); White Blood Count 13.94 K/uL (4.8-10.8)
[2021-05-21 06:19] LABS: Albumin Globulin Ratio 0.3 (0.9-2); Albumin Level 1.5 gm/dl (3.4-5.0); BUN Creatinine Ratio 27.9 (10-20); Bilirubin,Total 0.9 mg/dl (0.2-1); Calcium 7.9 mg/dl (8.5-10.1); Creatinine Clr Calc Pharmacy 141.4 ml/min; Est GFR (African American) 122.7 ml/min; Est GFR (Non-African American) 105.9 ml/min; Globulin 4.4 gm/dl (2.5-4.0); Magnesium 2.3 mg/dl (1.8-2.4); Potassium 4.2 mmol/L (3.5-5.1); Total Protein 5.9 gm/dl (6.4-8.2)
[2021-05-21] MEDS: ENOXAPARIN INJ 40 MG/0.4 ML SYR SQ SCH (08:04)
[2021-05-21] MEDS ORDERED: dexAMETHasone 6 MG in SYRINGE 0 ML IV SCH (09:00)
[2021-05-21] MEDS: cefTRIAXone SODIUM 2,000 MG in DEXTROSE 5% 50 ML IV SCH (12:31)
[2021-05-21] MEDS ORDERED: VANCOMYCIN TROUGH ONE (13:30)
--- NOTE | 2021-05-21 18:28 | Discharge Summary ---
Date of Service May 21, 2021 Admission HPI Per Admitting Provider Duncan Mooney is a 36yo male with no significant past medical or surgical history presenting with multiple issues. Patient first developed fever, chills, headache and body aches on 05/08/21. He was seen in the ER on 05/11/21. He was found to have leukocytosis, elevated ESR and CRP. Influenza and Lyme screen were negative. Patient was found to be POSITIVE for Covid-19. He was discharged home with instruction to quarantine x 10 days from symptom onset. Patient returned to the ER on 05/14/21 with complaint of left sided neck pain and swelling. Patient febrile at that time at 38.3. WBC was normal at 9.74. Alkaline phosphatase mildly elevated at 128 - LFTs otherwise unremarkable. Patient had a CT of the neck which revealed infiltration o the left parapharyngeal space and adjacent to the left SCM muscle with thickening of the left platysma. Findings suggestive of infectious process involving left SCM muscle. Multiple mildly enlarged left cervical lymph nodes appreciated. Patient was discharged home on Augmentin and Tylenol and Advil as needed. Patient returns this evening with worsening headache. He states he has pain up his entire back, posterior neck and head to the top of his head. Also complaining of myalgias, ongoing fever. He has had very little oral intake over the last 4 days. Patient denies sick contacts, recent travel. Drinks 2-3 beers/day but has not had any alcohol for at least 1 week. He denies taking much Tylenol. He denies knowledge of prior liver issues. Patient febrile to 38.6 in the ER, tachycardic at 106, BP is stable and he is not hypoxic - 96% on room air ER Course: Vancomycin Cefepime Principal Diagnosis 1. Multisystem inflammatory syndromeadult 2. Viral encephalitis 3. Acute uveitis 4. Acute viral hepatitis 5. Acute mononucleosis 6. Remote history of COVID-19 Discharge Exam General: Resting comfortably in his hospital bed. NAD. HEENT: Eyes are no longer injected. Head is AT/NC buccal mucosa is moist and pink Neck: No JVD. Negative hepatojugular reflex Cardiac: RRR without M/G/R Lungs: CTA without W/R/R Abdomen: Normoactive X4. Soft and nontender in all quadrants. Extremities: No peripheral clubbing cyanosis or edema Neuro: A&O X4 cranial nerves II through XII are grossly intact no focal neuro deficits Skin: No obvious skin lesions or rashes Psych: Appropriate affect pleasant and cooperative Discharge Data Allergies Allergy/AdvReac Type Severity Reaction Status Date / Time No Known Allergies Allergy Verified 05/17/21 17:29 Consultations 05/18/21 03:59 Consult Gastroenterology Routine (1) Abnormal LFTs: This is a 36 y/o male admitted w/ febrile illness, recent COVID infection, headache, myalgias, h/o left neck swelling. with leukocytosis. Was started on Augmentin recently. GI consulted for elevated LFTs; this is of unclear etiology; is in a mixed hepatocellular/cholestatic pattern. His INR was WNL. CT/US w/ no obvious biliary obstruction. On empiric ABX for concern for sepsis. Infectious w/u pending. He tolerated full breakfast this AM . On exam abd is soft, he has a mild icterus. Diff dx elevated LFTs includes infectious etiology (COVID vs other), DILI (Augmentin, Tylenol?); biliary obstruction less likely as imaging not suggestive of such. - Would await labs such as acute hep panel, CMV, EBV, tick-borne illness panel, blood cultures - Would follow daily LFTs, INR, CBC - IVF - Continue broad spectrum ABX as per primary team - Will follow labs and determine what if any further GI w/u he should have Thank you for allowing us to participate in the care of this patient. Please call with any acute changes, questions or concerns. Please see addendum below with additional recommendation from my supervising physician. Ordered Studies 05/17/21 16:40 CT head/brain wo con Stat CT soft tissue neck w con Stat 05/17/21 18:01 US gallbladder Urgent 05/17/21 19:17 CT abd pelvis IV con only Stat 05/18/21 03:59 MR venography head wo con Urgent 05/20/21 07:06 MR MRCP Routine 05/20/21 09:51 MR brain wo/w con Urgent 05/20/21 11:00 FL lumbar puncture diagnostic Routine 05/20/21 14:05 CT angio chest w con Urgent CT angio neck with con Urgent Hospital Course (1) Fever of unknown origin: - fever x 4-5 weeks at this point - presented to the ED with temp 102 along with leukocytosis with left shift and mild tachycardia - procal. elevated at 3.7 - ESR and CRP elevated (05/18): 122/24.6 - Positive covid 05/11 (3 weeks after symptoms onset) but repeat done 05/18 and 05/19 and both negative. Since, has been removed from isolation precautions (D/W Jacquelin Hector) - CT of the neck initially done 05/14 showing myositis of the left SCM (CK was mildly elevated at 337) but repeat CT showing his is improved - CXR: interstitial thickening which could reflect infectious process but patient without cough/SOB or respiratory symptoms - CT A/P showing distended GB without evidence of ductal dilation or acute cholecystitis - RUQ U/S showing GB wall thickening without ductal dilation or acute cholecystitis. Patient denies abd pain, N/V - MR venogram of the neck done (given neck pain) and unremarkable - Negative Kernig's and Brudzinski sign. - Monospot has since come back positive. Does have mild splenomegaly on CT - Suspected that this Could be pynt-sd-dagr infections-- covid upfront and given immunocompromised state from covid, developed secondary infection (mono). Can no t rule out associated bacterial infection as well (as procal mildly elevated) - LFT's are abnormal-->TB has downtrended from 4.8 to 2.5 but remaining stable at 2.5. His AST and ALT were normal and now seem to be uptrending (58/83) - ordered and pending: -monospot: + -EBV- pending -Pertussis: Negative -Adenovirus: Negative -C.pneumoniae: Negative -Parainfluenza: Negative -Parvovirus: Negative -RSV: Negative -anaplasma and babesiosis PCR (smears negative) -Acute hepatitis panel: pending -Lyme titer- IgM/IgG both negative -ASO- negative -CMG IgM negative. IgG positive indicating an old infection - Patient was started on empiric antibiotic therapy cefepime/doxycycline-- this was de-escalated to doxy on 05/19 (as it was thought that this would provide adequate atypical coverage for community-acquired pneumonia if he did it for secondary bacterial infection but more so provide coverage for anaplasmosis while his PCR was pending) -With reexamination on 05/20: Patient symptoms have progressively worsened. His major complaint is a severe headache and eye pain bilaterally. He was not having visual disturbances. He had since defervesced at this point Clinically, he has significant injection of the bilateral eyes and this seems to correlate with likely bilateral uveitis. Was still l unable to pinpoint the etiology of his headache/neck pain. His Kernig's and Brudzinski's remained negative; however, I feel that a lumbar puncture was warranted at this time. -MRI of the brain with and without contrast-no acute pathology -lumbar puncture for cerebrospinal fluid analysis: WBC count 10. Protein 84. No growth to date. Consistent with encephalitis at this point -CTA of the neck and chest to rule out giant cell arteritisunremarkable. No evidence of giant cell arteritis or abnormality -Antibiotic regimen was transitioned his antibiotic regimen to Rocephin/vancomycin as these cross the blood-brain barrier until bacterial meningitis can be ruled out. Culture done showing no growth to date and although not final, not consistent with a bacterial meningitis thus I feel comfortable discontinuing antibiotics -MRCP given his uptrending AST/ALT: No abnormalities. No biliary dilatation or evidence of acute cholecystitis -Case discussed with neurology (patient regarding my concern for possible meningitis/viral encephalitis), ophthalmology (regarding concern for uveitis), interventional radiology (regarding the lumbar puncture), and rheumatology (as I am uncertain if this is infectious or perhap inflammatory issues given the fact that he is post Covid and with active mono) -Neurology does not believe that a formal consult is necessary but agrees with the MRI of the brain and proceeding with a lumbar puncture. Dr. Olmstead believes that this very well could be a post Covid/mono viral encephalitis or even viral meningitis -Ophthalmology (Dr. Chaney) agrees that this sounds like Uveitis and that this can follow some viral infections so can likely follow Covid. He is recommending topical Prednisolone 1% 1gtt bilaterally -Rheumatology (Dr. Gonzalez)-- as I am not positive that this is an infectious etiology or perhaps inflammatory issue post covid/mono. Rheumatology feels that this very well may be the case. Of course makes sense to rule out infectious etiology but will start IV Decadron -In addition, case discussed with attending (Dr. Rivas) who also evaluated the patient and is ordering a CT angiogram of the neck/chest for concern of giant cell arteritis --Patient was started on IV Decadron as everything was coming back negative leading for concern that this was multisystem inflammatory syndromeadult secondary to Covid complicated by mononucleosis. --Patient was having involvement of brain (viral encephalitis), liver (acute viral hepatitis), and eye (uveitis) --Following 1 dose of Decadron, his eye pain and headache have completely resolved. His ESR is downtrending (95) and his CRP is downtrending (9.85). His bilirubin has completely normalized (0.9) despite the fact that his AST/ALT remain slightly elevated/lingering (which I believe is just likely a delayed response) --I am convinced that this is all inflammatory rather than infectious. Symptoms completely resolved and I feel comfortable discharging him to home with continued prednisone taper (4-week taper per current literature). --In addition, will prescribe Toradol as needed for breakthrough (lengthy discussion with patient that this in addition to the prednisone may be hard on stomach. May consider [id number] Pepcid for GI prophylaxis) --Should not need topical eyedrops given systemic steroids; however, will prescribe tapering course of Lotemax for added relief --Patient to follow-up with PCP within 7 to 10 days (did call and speak to patient's PCP to update her) and with rheumatology within 2 to 4 weeks as he will need a rheumatological work-up to ensure that he does not have an underlying rheumatological condition that has unmasked in the setting of post Covid inflammation (2) Uveitis: - see above -Prednisolone ophthalmic solution as recommended by ophthalmology. Cannot use this long-term. Transition to Lotemax with systemic steroids (3) Mononucleosis: -Likely contributing to his hyperbilirubinemia/transaminitis and splenomegaly seen on imaging -Continue with supportive care -Mild splenomegaly seen on imaging. 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 In addition, even sudden stopping while wearing a seatbelt can cause injury/splenic rupture. This is a risk over the next 6 to 8 weeks (4) Leukocytosis: -Was initially thought to be steroid-induced; however, patient has been off of steroids since admission. -I believe this could be infectious versus inflammatory in naturesee above -WBC count actually downtrending with steroids (which is strange) which leads me to believe that this is an inflammatory process (5) COVID-19 virus infection: -Symptom onset beginning to mid April with positive test on 05/11. Unfortunately, symptoms never resolved as he now has [id number] viral infections (now with acute mononucleosis) -Has had multiple negative Covid tests (most recently on 05/18 and today on 05/19). Did discuss this with Jeannette Beltrán who agrees that patient can be taken out of isolation precautions (6) Hyperbilirubinemia: -Likely a result of MIS-A only complicated further bymononucleosis - In talking with the patient, he was not taking a significant amount of Tylenol/alcohol prior to arrival - Labs orderedas outlined above - Salicylate: Negative - Acetaminophen level pending - Right upper quadrant ultrasound shows distended gallbladder without pericholecystic fluid and a negative Gutierrez sign. In the absence of abdominal pain, nausea and vomiting I find it hard to believe that this is contributing to his symptomatology although he could be developing a calculus cholecystitis - MRCP shows no evidence of biliary dilatation or acute cholecystitis - Avoid hepatotoxic meds (ie- APAP, okay for ibuprofen for fever/RABAGO/Pain) - GI consultedappreciate recommendations -Recommend outpatient follow-up labs to trend Total Time Total Time Spent Total Time Spent (In Minutes): 90 min including time spent with the patient, discussion with , discussion with rheumatology, discussion with patient's PCP, and discussion with attending physician in addition to preparation of documentation and completion of [facility] paperwork Discharge Plan Discharge Items Patient Disposition: Home - Self-Care Reason For Visit: ABNORMAL LIVER STUDIES Discharge Diagnosis: 1. Multisystem Inflammatory Syndrome-Adult (MIS-A) 2. Uveitis 3. Acute Viral hepatitis 4. Acute Mononucleosis 5. Acute Viral Encephalitis Activity: As commented below Activity Comment: light activity as discussed given risk of splenic rupture Non-emergency contact: Primary Care Provider and Specialist Call non-emergency contact if: you have any medication questions and your symptoms worsen Follow-up/Referrals: Lauren Guajardo DO [Primary Care Provider] - 05/26/21 1:50 pm Negro Hester MD [Physician] - Diet: Regular Addtl Attending Provider Instructions: -You presented to the hospital with a fever, headache, and neck pain. You were subsequently found to have a significantly elevated white blood cell count and abnormal liver function studies -You were very difficult to figure out in terms of the cause of your abnormal lab findings and symptoms -A very thorough work-up was done. We tested for nearly all viruses and infectious processes that we could think of and all has come back negative -In addition, we have ordered multiple diagnostic studies including a CT of the head, CTA of the neck and chest, MR venogram of the neck, CT of the abdomen and pelvis, ultrasound of the right upper quadrant, MRCP of the biliary tree. In addition, a lumbar Puncture was performed -You did test positive for mononucleus this in your spinal tap cerebrospinal fluid seems consistent with what we call a viral encephalitis (which is inflammation of your brain secondary to a viral infection). -The eye pain that you experienced was likely due to uveitis (or inflammation of your eyes) -The abnormal liver function studies was likely due to viral hepatitis (inflammation of your liver secondary to a virus) -In following you and ruling out other etiologies, we concluded that we believe you have multisystem inflammatory syndrome which is basically significant inflammatory response involving multiple organs (in your case, your brain, eyes, and liver). We Believe that this is all secondary to Covid. In addition, you have mononucleosis. I am uncertain if you have had this in the past (as the final lab data to help me to differentiate that is pending) or if this is your first bout. It is possible that you are having A reoccurrence simply secondary to the significant inflammatory response from Covid -At any rate, you have shown significant improvement with the addition of steroids (an anti-inflammatory) -At this point, I do not know the long-term effects but with the literature available now -you should taper prednisone over the next 4 weeks (40 mg daily X 5 days, 30 mg daily X 5 days, 20 mg daily X 5 days, 10 mg daily X 5 days, 5 mg daily X 5 days then stop) -I do recommend that you follow-up with your PCP within 7 to 10 days -I also recommend that you follow-up with rheumatology as you should have a rheumatological work-up done. This could not be performed now as you may have abnormal results given the active inflammatory response from Covid -I have prescribed eyedrops for you to taper as well -It would be cnoley for you to follow-up with an production expert -You were found to have a slightly enlarged spleen (which in all honesty is likely due to being post viral syndromeCovid and mono) -Given the subtle splenic enlargement, you are at risk for splenic rupture. As discussed, you should avoid any contact or traumatic activities (such as swinging from a harness at work). Other things that are risky would be riding a 4 burnette over bumpy Terrain. Contact sports (such as football). In addition, use caution when driving as even sudden stops can cause the seatbelt to cause a splenic rupture Pending Studies at Discharge: Yes Studies:: CSF final analysis, Lyme Serology, EBV serology, HSV, VZV, HLA-B27 Stand-Alone Forms: My [facility] Medications and DC Order Prescriptions: New prednisone 10 mg tablet 10 mg PO DIRECTED Qty: 55 RF: 0 loteprednol etabonate [Lotemax] 0.5 % drops,suspension 1 drp ophthalmic (eye) DIRECTED Qty: 15 RF: 0 ketorolac 10 mg tablet 10 mg PO Q8H PRN (Reason: pain- breakthrough/severe pain) Qty: 10 RF: 0 Discontinued ibuprofen 200 mg Tablet 400 - 600 mg PO DIRECTED PRN (Reason: FEVER/PAIN) RF: 0 acetaminophen [Tylenol Extra Strength] 500 mg Tablet 1,000 mg PO Q6H PRN (Reason: fever/pain) RF: 0 amoxicillin-pot clavulanate [Augmentin] 875-125 mg tablet 1 tab PO BID 10 Days Qty: 20 RF: 0 hydrocodone-acetaminophen 5-325 mg tablet 1 tab PO Q6H PRN (Reason: pain) Qty: 10 RF: 0 Discharge Orders: Discharge Order (Routine); Ordered 05/21/21 Ordered By: Giovana Velasquez/Other Patient Handouts: What Is Uveitis?, Treating Uveitis, Mononucleosis ([place]) Admission Data Admit Date/Time: 05/18/21 00:47 Attending Provider: Sean Rivas Admit Provider: Deisy Garcia Primary Care Provider: Lauren Guajardo Other Providers: Reva Ocampo Other Interventions: Discharge Summary Assessment (RN) Last Done: 05/21/21 13:37 Supervising Physician Co-Signing Physician Notes Patient seen and examined on the day of discharge. I agree with the discharge summary by Giovana MURRY. I have reviewed the chart including labs, imaging and plans for discharge. patient feeling a lot better after steroids yesterday, inflammatory markers going down, less neck pain, no headache - Multisystem inflammatory syndrome - adult most logical explanation with his presentation, had COVID 2 weeks back markedly elevated inflammatory markers with CRP and ESR very extensive work up with MRI brain, CT angiogram neck and chest, lumbar puncture Giovana Roper spoke with rheumatology will discharge on Prednisone taper, steroid eye drops will arrange follow up with rheumatology in clinic met with patient and his at discharge, questions answered Coding Level of Care Code D/C DAY MANAGEMENT >30 MINS Diagnoses Fever of unknown origin R50.9 Uveitis H20.9 Mononucleosis B27.90 Leukocytosis D72.829 COVID-19 virus infection U07.1 Hyperbilirubinemia E80.6
[2021-05-23 23:21] LABS: CMV DNA Qnt Real Time PCR Not Detected; CMV DNA Quant PCR Not Detected log IU/mL
[2021-05-24 19:49] LABS: Lyme DNA PCR CSF or Synovial Not detected (Not Detected); Lyme DNA Source CSF
[2021-05-27 19:27] LABS: Albumin 2.3 g/dL (3.5-5.2); Albumin, CSF 38.2 mg/dL (8.0-42.0); EBV DNA Quant PCR <200 copies/mL (<200); EBV DNA Quant Source CSF; HLA B27 NEGATIVE (NEGATIVE); Herpes Virus 6 (DNA) Not Detected (Not Detected); Herpes Virus 6 (DNA) Source CSF; IgG CSF 8.6 mg/dL (0.8-7.7); IgG Index, CSF 0.46 (<0.66); IgG Serum 1120 mg/dL (600-1640); Lyme IgG Band Pattern CSF DNR; Lyme IgG CSF NO BANDS DETECTED; Lyme IgM Band Pattern CSF DNR; Lyme IgM CSF NO BANDS DETECTED; Myelin Basic Protein <2.0 mcg/L (2.0-4.0); Synthesis Rate, IgG CSF -1.7 mg/24 h (-9.9-3.3); VZ DNA Source CSF; Varicella Zoster Virus DNA PCR Not Detected (Not Detected)
== END 2021-05-21 15:24 | disposition home or self-care (01) | DRG 546 ==
LOC: ED 16:11 → 3E 05-18 00:47 → SUATTDRO 05-18 00:47 → 3E 05-18 03:23